=== PATIENT | female | born 1955 | race Caucasian/White ===

== ENCOUNTER → 2016-07-01 | Outpatient (CLI) | payer BC ==
[~2016-07-01] MED LIST: BSP/10 PO; CHOLCAP5 PO; CLC100 PO; CLR10 PO; CYAN100048 PO; ESTR1CRE PV; FERR1TAB23 PO; LEVO50TA6 PO; MULT-190 PO; MULT-506 PO; PANT1TAB48 PO; POTA1CAP2 PO
--- NOTE | 2016-07-01 16:56 | MAMMOGRAPHY REPORT ---
BILATERAL DIGITAL SCREENING MAMMOGRAM TOMOSYNTHESIS WITH CAD: 07/01/2016 CLINICAL HISTORY: Routine screening. Patient has no complaints. TECHNIQUE: Breast tomosynthesis in addition to standard 2D mammography was performed. Current study was also evaluated with a Computer Aided Detection (CAD) system. COMPARISON: Comparison is made to exams dated: 05/21/2015 mammogram, 05/10/2015 mammogram, 4 mammogram, 04/07/2013 mammogram, 04/06/2012 mammogram, and 03/23/2011 mammogram - [facility]. BREAST COMPOSITION: There are scattered areas of fibroglandular density in both breasts. FINDINGS: No suspicious masses, calcifications, or areas of architectural distortion are noted in e ither breast. There has been no significant interval change compared to prior exams. IMPRESSION: ACR BI-RADS CATEGORY 1: NEGATIVE There is no mammographic evidence of malignancy. A 1 year screening mammogram is recommended. The p atient will receive written notification of the results. Approximately 10% of breast cancers are not detected with mammography. A negative mammographic repor t should not delay biopsy if a clinically suggestive mass is present. Steff Nathan M.D. /:07/01/2016 15:29:44 Technology Specialist: Karla Palafox RT(Surendra)(Christiano)(BD), [facility] letter sent: Normal 1/2 BI-RADS Code: ACR BI-RADS Category 1: Negative
== END | disposition home or self-care (01) ==
LOC: C.MAMM 15:06
PROVIDERS: ATTEND Family Medicine
DX: Z12.31 Encounter for screening mammogram for malignant neoplasm of breast (principal)

== ENCOUNTER → 2016-12-10 | Outpatient (CLI) | payer BC | END | disposition home or self-care (01) | LOC: C.MAMM 08:25 | PROVIDERS: ATTEND Obstetrics & Gynecology | DX: M85.89 Other specified disorders of bone density and structure, multiple sites (principal) ==

== ENCOUNTER → 2017-07-06 | Outpatient (CLI) | payer BC ==
[~2017-07-06] MED LIST changes: +PANT1TAB3 PO; -PANT1TAB48 PO
--- NOTE | 2017-07-07 15:40 | MAMMOGRAPHY REPORT ---
BILATERAL DIGITAL SCREENING MAMMOGRAM TOMOSYNTHESIS WITH CAD: 07/06/2017 CLINICAL HISTORY: Routine screening. TECHNIQUE: Breast tomosynthesis in addition to standard 2D mammography was performed. Current study was also evaluated with a Computer Aided Detection (CAD) system. COMPARISON: Comparison is made to exams dated: 05/21/2015 mammogram, 07/01/2016 mammogram, 05/10/2015 mammogram, 04/10/2014 mammogram, 04/07/2013 mammogram, and 04/06/2012 mammogram - [facility]. BREAST COMPOSITION: There are scattered areas of fibroglandular density in both breasts. FINDINGS: There are stable asymmetries in the medial right breast, and scattered benign-appearing rou nd microcalcifications. No suspicious spiculated or irregular mass, developing asymmetry, architectu ral distortion or cluster of microcalcifications is seen. IMPRESSION: ACR BI-RADS CATEGORY 1: NEGATIVE There is no mammographic evidence of malignancy. A 1 year screening mammogram is recommended. The pa tient will receive written notification of the results. Approximately 10% of breast cancers are not detected with mammography. A negative mammographic report should not delay biopsy if a clinically suggestive mass is present. Kathryn Enriquez M.D. ay/:07/06/2017 19:10:10 Picture Enlarger: Lorenzo RUBIN)(M), [facility] letter sent: Normal 1/2 BI-RADS Code: ACR BI-RADS Category 1: Negative
== END | disposition home or self-care (01) ==
LOC: C.MAMM 14:49
PROVIDERS: ATTEND Obstetrics & Gynecology
DX: Z12.31 Encounter for screening mammogram for malignant neoplasm of breast (principal)

== ENCOUNTER 2019-08-22 02:13 | Inpatient (IN) ==
[2019-08-22] MEDS ORDERED: SODIUM CHLORIDE 0.9% 1000ML 1,000 ML IV ONE (02:41)
[2019-08-22] MEDS ORDERED: ONDANSETRON INJ 2 MG/ML 2 ML VIAL IV STA (02:41)
[2019-08-22] MEDS ORDERED: HYDROmorphone INJ 1 MG/ML SYRINGE IV STA (02:41)
[2019-08-22 03:12] LABS: Basophils # (auto) 0.03 K/uL (0-0.2); Basophils % (auto) 0.2 %; Eosinophils % (auto) 1.6 %; Hematocrit (blood only) 38.3 % (37-47); Hemoglobin 12.9 g/dL (12.0-16.0); Immature Granulocytes # (auto) 0.03 K/uL (0.00-0.02); Immature Granulocytes % (auto) 0.2 %; Lymphocytes # (auto) 2.25 K/uL (1.2-3.4); Lymphocytes % (auto) 18.2 %; Mean Corpuscular Hemoglobin 31.5 pg (25-34); Mean Corpuscular Hgb Conc 33.7 g/dL (32-36); Mean Corpuscular Volume 93.6 fL (80-100); Mean Platelet Volume 9.1 fL (7.4-10.4); Monocytes # (auto) 1.49 K/uL (0.11-0.59); Monocytes % (auto) 12.1 %; Neutrophils # (auto) 8.33 K/uL (1.4-6.5); Neutrophils % (auto) 67.7 %; Platelet Count 245 K/uL (130-400); RDW Coefficient of Variation 12.6 % (11.5-14.5); RDW Standard Deviation 42.9 fL (36.4-46.3); Red Blood Count 4.09 M/uL (4.2-5.4); White Blood Count 12.33 K/uL (4.8-10.8)
[2019-08-22 03:31] LABS: Albumin Level 3.8 gm/dl (3.4-5.0); BUN Creatinine Ratio 13.3 (10-20); Calcium 9.4 mg/dl (8.5-10.1); Creatinine Clr Calc Pharmacy 62.1 ml/min; Est GFR (Non-African American) 63.8
[2019-08-22 03:33] LABS: Bilirubin,Total 0.5 mg/dl (0.2-1); Globulin 3.7 gm/dl (2.5-4.0); Total Protein 7.5 gm/dl (6.4-8.2)
--- NOTE | 2019-08-22 04:09 | Emergency Department Note ---
History of Present Illness General Chief complaint: GI Assessment Stated complaint: BOWEL BLOCKAGE Time Seen by Provider: 08/22/19 02:31 Source: patient Mode of arrival: ambulatory Limitations: no limitations History of Present Illness Maximum Pain Intensity: 7 This patient is a 63-year-old female who presents to the emergency department accompanied by her for evaluation of a bowel obstruction. Patient st ates that she has had upper abdominal pain and nausea/vomiting which started approximately 12 hours ago. 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 She has had a hysterectomy, appendectomy, bowel resection, gallbladder removal, among other abdominal surgeries. She states her symptoms now feel similar to her prior bowel obstructions. She reports that her bowel obstructions have always resolved without surgery and most have resolved without need for an NG tube. She rates her discomfort an 8/10. She states the pain is sharp and crampy. Last bowel movement was yesterday. She denies any fevers or urinary symptoms. Home Medications Home Medications Medication Instructions Recorded Confirmed Type pantoprazole [Protonix] 40 mg PO QPM 03/04/18 08/22/19 History potassium chloride 10 meq PO QAM 03/04/18 08/22/19 History thyroid (pork) [[place] Thyroid] 90 mg PO DAILY 03/04/18 08/22/19 History calcium carbonate [Calcium 600] 1,200 mg PO DAILY 08/22/19 08/22/19 History cholecalciferol (vitamin D3) 125 mcg PO DAILY 08/22/19 08/22/19 History [Vitamin D3] cyanocobalamin (vitamin B-12) 1,000 mcg SUBLINGUAL 3XWK 08/22/19 08/22/19 History docusate sodium 700 mg PO HS 08/22/19 08/22/19 History ferrous sulfate 325 mg PO 4XWK 08/22/19 08/22/19 History multivitamin with minerals 1 tab PO DAILY 08/22/19 08/22/19 History [Multiple Vitamin-Minerals] vitamin E 400 unit PO DAILY 08/22/19 08/22/19 History Allergies Allergy/AdvReac Type Severity Reaction Status Date / Time barium sulfate Allergy Severe "SEVERELY Verified 08/22/19 04:45 ILL", GI promethazine Allergy Mild INTOLERANCE, Verified 08/22/19 04:45 DIZZY meperidine Allergy Unknown BRUISING Verified 08/22/19 04:45 AND SEVERE BURNING IN IV FORM morphine AdvReac Intermediate Anxiety Verified 08/22/19 04:45 adhesive AdvReac Unknown RASH Verified 08/22/19 04:45 Past Med/Surg History Medical History Adenocarcinoma of appendix Hypothyroidism Surgical History H/O ovarian cystectomy History of appendectomy History of cholecystectomy History of hysterectomy History of resection of small bowel S/P hip replacement S/P tonsillectomy Social History Preferred Language: Scottish Communication Ability: Effective Solution Designer Required: No Beliefs That Will Affect Care: None marital status: Current Living Situation: Spouse Feels Safe at Home: Yes Smoking Status: Never smoker Second Hand Exposure: No ; Hx Alcohol Use: Yes Alcohol type: beer and wine Hx Substance Use: No Review of Systems A total of 10 systems reviewed and were otherwise negative Physical Exam Vital Signs Vital Signs - 24 hr 08/22/19 02:25 08/22/19 03:08 08/22/19 03:16 Temperature 36.4 C L Temperature Source Oral Pulse Rate 67 63 Pulse Rate from SpO2 Sensor 63 Pulse Rhythm Regular Pulse Strength Normal Respiratory Rate 20 27 H Respiratory Effort / Characteristics Non-Labored Spontaneous Respiratory Depth Normal Respiratory Pattern Regular Blood Pressure 120/75 110/66 Blood Pressure Mean 90 73 Pulse Oximetry 100 100 78 L Oxygen Delivery Method Room Air Room Air Nasal Cannula Oxygen Flow Rate Sepsis Recent Fever Within 48 Hours No Sepsis Action Taken by Nursing No Action Required Oxygen Flow Rate - Titration 2 Pulse Oximetry Post Tiitration 99 08/22/19 03:30 08/22/19 04:00 08/22/19 04:30 Temperature Temperature Source Pulse Rate 65 73 73 Pulse Rate from SpO2 Sensor 64 72 73 Pulse Rhythm Pulse Strength Respiratory Rate 16 15 14 Respiratory Effort / Characteristics Respiratory Depth Respiratory Pattern Blood Pressure 117/74 111/67 131/72 Blood Pressure Mean 89 73 78 Pulse Oximetry 98 99 99 Oxygen Delivery Method Nasal Cannula Nasal Cannula Room Air Oxygen Flow Rate 2 2 Sepsis Recent Fever Within 48 Hours Sepsis Action Taken by Nursing Oxygen Flow Rate - Titration Pulse Oximetry Post Tiitration VITALS: Vitals are noted on the nurse's note and reviewed by myself. Vital signs stable. GENERAL: This is a 63-year-old female, in moderate distress, uncomfortable appearing, well-developed well-nourished. SKIN: The skin was without rashes. EYES: Pupils equal round and reactive to light and accommodation. MOUTH: Mucous membranes moist. Tonsils are not enlarged. Pharynx without erythema or exudate. NECK: Supple without nuchal rigidity. No lymphadenopathy. HEART: Regular rate and rhythm without murmurs gallops or rubs. LUNGS: Clear to auscultation bilaterally without wheezes, rales or rhonchi. ABDOMEN: Hypoactive bowel sounds. Abdomen is soft and nondistended. There is moderate tenderness to the patient across the upper abdomen. No guarding or rebound tenderness. EXTREMITIES: No pitting edema of the lower extremities. NEURO: Patient was alert and oriented to person place and time. Course Reevaluation(s) Reevaluation #1: Patient was reevaluated. She feels much better after receiving the pain and nausea medication. Findings were discussed with the patient. She is agreeable to admission. Patient refuses NG tube at this time. Consultations Consultation #1: Dr. Benjamin Franks [facility] hospitalist Administered Medications Ioversol (Optiray 320 100ml) 100 ml IV ONCE PRN PRN Reason: Interaction Checking Stop: 08/26/19 04:17 Last Admin: 08/22/19 04:18 Dose: 93 ml Documented by: [id number] Discontinued Medications Hydromorphone HCl (Dilaudid) 1 mg IV NOW STA Stop: 08/22/19 02:42 Last Admin: 08/22/19 03:01 Dose: 1 mg Documented by: [id number] Sodium Chloride (Nss 1000ml) 1,000 mls @ 999 mls/hr IV .Q1H1M ONE Stop: 08/22/19 03:41 Last Infusion: 08/22/19 04:05 Dose: 0 mls/hr Documented by: [id number] Admin: 08/22/19 03:00 Dose: 999 mls/hr Documented by: [id number] Ondansetron HCl (Zofran) 4 mg IV NOW STA Stop: 08/22/19 02:42 Last Admin: 08/22/19 03:01 Dose: 4 mg Documented by: [id number] Medical Decision Making Differential Diagnosis Differential diagnosis includes appendicitis, diverticulitis, bowel obstruction, inflammatory bowel disease, renal colic, PUD, biliary pathology, pancreatitis, mesenteric ischemia, aortic pathology, infection, genitourinary, UTI, perforated viscus, among others. Home Medications Current Medication List: was personally reviewed by me Laboratory Data Attestation: I reviewed the patient's lab results. Result diagrams: 08/22/19 02:56 08/22/19 02:59 Lab Results 08/22/19 08/22/19 Range/Units 02:56 02:59 WBC 12.33 H (4.8-10.8) K/uL RBC 4.09 L (4.2-5.4) M/uL Hgb 12.9 (12.0-16.0) g/dL Hct 38.3 (37-47) % MCV 93.6 (80-100) fL MCH 31.5 (25-34) pg MCHC 33.7 (32-36) g/dL RDW Std Deviation 42.9 (36.4-46.3) fL RDW Coeff of Rodrigo 12.6 (11.5-14.5) % Plt Count 245 (130-400) K/uL MPV 9.1 (7.4-10.4) fL Immature Gran % (Auto) 0.2 % Neut % (Auto) 67.7 % Lymph % (Auto) 18.2 % Terry % (Auto) 12.1 % Eos % (Auto) 1.6 % Baso % (Auto) 0.2 % Immature Gran # (Auto) 0.03 H (0.00-0.02) K/uL Neut # (Auto) 8.33 H (1.4-6.5) K/uL Lymph # (Auto) 2.25 (1.2-3.4) K/uL Terry # (Auto) 1.49 H (0.11-0.59) K/uL Eos # (Auto) 0.20 (0-0.5) K/uL Baso # (Auto) 0.03 (0-0.2) K/uL Sodium 138 (136-145) mmol/L Potassium 4.0 (3.5-5.1) mmol/L Chloride 103 (98-107) mmol/L Carbon Dioxide 25 (21-32) mmol/L Anion Gap 9.0 (3-11) BUN 13 (7-18) mg/dl Creatinine 0.96 (0.6-1.2) mg/dl Est Cr Clr Drug Dosing 62.1 ml/min Est GFR ( Amer) 74.0 Est GFR (Non-Af Amer) 63.8 BUN/Creatinine Ratio 13.3 (10-20) Glucose 101 H (70-99) mg/dl Calcium 9.4 (8.5-10.1) mg/dl Total Bilirubin 0.5 (0.2-1) mg/dl AST 20 (15-37) U/L ALT 31 (12-78) U/L Alkaline Phosphatase 92 (45-117) U/L Total Protein 7.5 (6.4-8.2) gm/dl Albumin 3.8 (3.4-5.0) gm/dl Globulin 3.7 (2.5-4.0) gm/dl Albumin/Globulin Ratio 1.0 (0.9-2) Lipase 143 (73-393) U/L Imaging Data Attestation: I personally reviewed and interpreted this imaging study as follows: Radiologist's Impression: CT ABDOMEN & PELVIS With Contrast: Priors from 03/04/18, 07/23/15. Bowel anastomotic suture sites in the pelvis as on priors. Multiple dilated small bowel loops with air-fluid levels likely represents small bowel obstruction with transition point in the pelvis. Similar configuration on priors. No free air, free fluid. Cholecystectomy and central biliary ectasia, stable. Left hip prosthesis. Absent uterus Radiologist: Dorian Ramos M.D. Blood Pressure Blood Pressure Findings: Elevated blood pressure Blood Pressure Disposition: further management by hospitalist MDM Narrative The patient is a 63-year-old female who presents today complaining of abdominal pain and vomiting consistent with prior bowel obstructions. Labs revealed a mild leukocytosis, no anemia or concerning electrolyte abnormalities. CT abdomen pelvis was performed and shows small bowel obstruction. Patient treated with IV fluids, Dilaudid and Zofran with improvement of her symptoms. Patient refused NG tube at this time and as there is no significant gastric distention I feel this is reasonable. The case was discussed with the [facility] hospitalist, Dr. Alexander, who agreed to evaluate patient for further care. Impression & Plan Small bowel obstruction Discharge Plan Visit Data *Final* Discharge Date/Time: 08/22/19 05:19 Chief Complaint: GI Assessment Stated Complaint: BOWEL BLOCKAGE ED Provider: Toney Mckeon ED Midlevel Provider: Ana Glaser Discharge Problem: Small bowel obstruction Patient Disposition: Admitted As Inpatient Discharge Instructions Interventions: ED Discharge Assessment Last Done: 08/22/19 05:19
[2019-08-22] MEDS ORDERED: IOVERSOL 100ml IV PRN (04:18)
--- NOTE | 2019-08-22 05:03 | History & Physical Report ---
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 Patient presently pain-free, no nausea, nontoxic in appearance Admit to medical floor N.p.o. Check magnesium and phosphorus and optimize as needed LR at 100 mL/h x 2 L Zofran as needed for nausea Dilaudid as needed for pain Surgery consultation if symptoms persist or worsen Present on Admission?: Yes (2) Hypothyroidism: Chronic. Check TSH Continue [place] Thyroid 90 mg p.o. daily FENLR at 100 mL/h x 2 L, monitor electrolytes replete as needed, n.p.o. for now ProphylaxisLovenox Codefull Dispositionadmission to medical floor Present on Admission?: Yes History of Present Illness Chief Complaint: abdominal pain Primary Care Provider: Toney Villasenor Sharron Romero is a 63yo C female with history of appendiceal cancer s/p resection and chemo, frequent SBOs presenting with abdominal pain. Patient's pain began acutely yesterday at 1400, lower abdominal discomfort, fairly severe. Pain initially improved then got worse and persisted through the night. She did not eat dinner and was drinking Gatorade, took an oxycodone at home for the pain around 2130 with minimal relief. Also with mild nausea, no vomiting. Last b owel movement was yesterday afternoon. Presently not passing gas, no nausea, no pain. Patient has had multiple SBO's in the past and states that this feels similar. ER course: Dilaudid 1 mg, Zofran 4 mg, normal saline solution Allergies Allergy/AdvReac Type Severity Reaction Status Date / Time barium sulfate Allergy Severe "SEVERELY Verified 08/22/19 04:45 ILL", GI promethazine Allergy Mild INTOLERANCE, Verified 08/22/19 04:45 DIZZY meperidine Allergy Unknown BRUISING Verified 08/22/19 04:45 AND SEVERE BURNING IN IV FORM morphine AdvReac Intermediate Anxiety Verified 08/22/19 04:45 adhesive AdvReac Unknown RASH Verified 08/22/19 04:45 Home Medications Home Medications Medication Instructions Recorded Confirmed Type pantoprazole [Protonix] 40 mg PO QPM 03/04/18 08/22/19 History potassium chloride 10 meq PO QAM 03/04/18 08/22/19 History thyroid (pork) [[place] Thyroid] 90 mg PO DAILY 03/04/18 08/22/19 History calcium carbonate [Calcium 600] 1,200 mg PO DAILY 08/22/19 08/22/19 History cholecalciferol (vitamin D3) 125 mcg PO DAILY 08/22/19 08/22/19 History [Vitamin D3] cyanocobalamin (vitamin B-12) 1,000 mcg SUBLINGUAL 3XWK 08/22/19 08/22/19 History docusate sodium 700 mg PO HS 08/22/19 08/22/19 History ferrous sulfate 325 mg PO 4XWK 08/22/19 08/22/19 History multivitamin with minerals 1 tab PO DAILY 08/22/19 08/22/19 History [Multiple Vitamin-Minerals] vitamin E 400 unit PO DAILY 08/22/19 08/22/19 History Past Med/Surg History Medical History (Updated 08/22/19 @ 05:02 by Yuliya Alexander DO) Adenocarcinoma of appendix Hypothyroidism Surgical History (Updated 08/22/19 @ 04:37 by Ana Glaser PA-C) H/O ovarian cystectomy History of appendectomy History of cholecystectomy History of hysterectomy History of resection of small bowel S/P hip replacement S/P tonsillectomy Family History (Updated 08/22/19 @ 04:56 by Yuliya Alexander DO) Other Osteoporosis Social History Preferred Language: Ghanaian Communication Ability: Effective Beliefs That Will Affect Care: None marital status: Current Living Situation: Spouse Feels Safe at Home: Yes Smoking Status: Never smoker Second Hand Exposure: No ; Hx Alcohol Use: Yes (4-5 glass a week) Alcohol type: beer and wine Hx Substance Use: No Review of Systems Review of Systems: All systems reviewed & are unremarkable except as noted in HPI & below Denies fever/chills/chest pain/palpitations/cough/shortness of breath. Denies nausea/vomiting/diarrhea/constipation Physical Exam Physical Exam: General: patient resting comfortably, NAD, non-toxic in appearance, AA&O x 4 Skin: warm, dry, intact, no rashes or lesions HEENT: NC/AT, PERRL, EOMI, anicteric sclera, conjunctiva without injection, external ear normal to inspection and nontender, nares patent, moist mucus membranes, dentition intact, no oropharyngeal lesions, neck supple, trachea midline, no LAD, no thyromegaly, no JVD Heart: +S1/S2, regular, no m/r/g Lungs: equal air entry bilaterally, no rales/rhonchi/wheezes Abd: +BS, diminished, soft, ND, mildly tender with deep palpation, no rebound/guarding/peritoneal signs no masses/organomegaly/ascites Ext: warm, 2+ pulses in UE/LE bilaterally, no clubbing/cyanosis or edema Neuro: nonfocal, patient AA&O x 4, speech intact, no facial droop, moving all extremities on command with equal strength 5/5 Results & Data Vital Signs (Past 12 Hours) Vital Signs Temp Pulse Resp BP Pulse Ox 08/22/19 04:00 73 15 111/67 99 08/22/19 03:30 65 16 117/74 98 08/22/19 03:16 78 L 08/22/19 03:08 63 27 H 110/66 100 08/22/19 02:25 36.4 C L 67 20 120/75 100 Laboratory Results Lab Results 08/22/19 08/22/19 Range/Units 02:56 02:59 WBC 12.33 H (4.8-10.8) K/uL RBC 4.09 L (4.2-5.4) M/uL Hgb 12.9 (12.0-16.0) g/dL Hct 38.3 (37-47) % MCV 93.6 (80-100) fL MCH 31.5 (25-34) pg MCHC 33.7 (32-36) g/dL RDW Std Deviation 42.9 (36.4-46.3) fL RDW Coeff of Rodrigo 12.6 (11.5-14.5) % Plt Count 245 (130-400) K/uL MPV 9.1 (7.4-10.4) fL Immature Gran % (Auto) 0.2 % Neut % (Auto) 67.7 % Lymph % (Auto) 18.2 % Sebastian % (Auto) 12.1 % Eos % (Auto) 1.6 % Baso % (Auto) 0.2 % Immature Gran # (Auto) 0.03 H (0.00-0.02) K/uL Neut # (Auto) 8.33 H (1.4-6.5) K/uL Lymph # (Auto) 2.25 (1.2-3.4) K/uL Sebastian # (Auto) 1.49 H (0.11-0.59) K/uL Eos # (Auto) 0.20 (0-0.5) K/uL Baso # (Auto) 0.03 (0-0.2) K/uL Sodium 138 (136-145) mmol/L Potassium 4.0 (3.5-5.1) mmol/L Chloride 103 (98-107) mmol/L Carbon Dioxide 25 (21-32) mmol/L Anion Gap 9.0 (3-11) BUN 13 (7-18) mg/dl Creatinine 0.96 (0.6-1.2) mg/dl Est Cr Clr Drug Dosing 62.1 ml/min Est GFR ( Amer) 74.0 Est GFR (Non-Af Amer) 63.8 BUN/Creatinine Ratio 13.3 (10-20) Glucose 101 H (70-99) mg/dl Calcium 9.4 (8.5-10.1) mg/dl Total Bilirubin 0.5 (0.2-1) mg/dl AST 20 (15-37) U/L ALT 31 (12-78) U/L Alkaline Phosphatase 92 (45-117) U/L Total Protein 7.5 (6.4-8.2) gm/dl Albumin 3.8 (3.4-5.0) gm/dl Globulin 3.7 (2.5-4.0) gm/dl Albumin/Globulin Ratio 1.0 (0.9-2) Lipase 143 (73-393) U/L Diagnostic Findings CT abdomen pelvis with IV contrastawaiting formal read. Appears to have distended loops of bowel with air-fluid levels suggestive of bowel obstruction ECG Additional Comments: EKG with normal sinus rhythm at 65 bpm, normal axis, [place] = 188, QRS = 70, QTc = 447, no acute ischemic changes Code Status & VTE Plan Code Status Full code VTE Prophylaxis Plan VTE Prophylaxis will be ordered: Yes PG Care Time/CCT Total # of Minutes Spent Total Time Spent with Patient: Total time spent is greater than 50% in coordination of care (as documented) at patient's floor/unit and/or counseling patient: Coding Level of Care Code 00988 Initial Inpt Care Lvl 2 Diagnoses Small bowel obstruction K56.609 Hypothyroidism E03.9 Hypothyroidism type: unspecified (1) Hypothyroidism Hypothyroidism type: unspecified Qualified Code(s): E03.9 - Hypothyroidism, unspecified
[2019-08-22] MEDS ORDERED: ONDANSETRON INJ 2 MG/ML 2 ML VIAL IV PRN (05:33)
[2019-08-22] MEDS ORDERED: HYDROmorphone INJ 1 MG/ML SYRINGE IV PRN (05:33)
[2019-08-22] MEDS: LACTATED RINGER'S 1,000 ML IV SCH ×2 (06:13→16:02)
[2019-08-22 06:16] LABS: Magnesium 2.3 mg/dl (1.8-2.4); Phosphorus 3.3 mg/dl (2.5-4.9)
--- NOTE | 2019-08-22 06:25 | CT Scan Report ---
CT abd pelvis IV con only CT DOSE: 409.93 mGy.cm HISTORY: Pain. Bowel obstruction. abdominal pain, hx bowel obstruction TECHNIQUE: Multiaxial CT images of the abdomen and pelvis were performed following the use of intrave nous contrast. A dose lowering technique was utilized adhering to the principles of ALARA. COMPARISON STUDY: 03/04/2018 FINDINGS: Similar configuration to prior studies. Lung bases are clear. Prior cholecystectomy. Liver spleen and pancreas are unremarkable. Kidneys enhance uniformly. Distended small bowel loops persist. A surgical anastomotic line within the superior central pelvic r egion is again noted with additional anastomotic lines within the low pelvis. The appearance continues to suggest nonspecific small bowel obstructive change. No evidence for signi ficant free fluid within the pelvis within limitations artifact from a total left hip prosthetic. IMPRESSION: Findings again consistent with small bowel obstructive change unaltered in overall appear ance compared to prior studies. Postoperative changes as noted previously as well as above are unalte red. IMPRESSION: No significant abnormality identified within the abdomen or pelvis. ACT 112: Negative or not required by law. The above report was generated using voice recognition software. It may contain grammatical, syntax or spelling errors. Electronically signed by: Juan Edouard M.D. 08/22/2019 6:23 AM
[2019-08-22 07:27] LABS: Appearance Urine Clear (Clear); Bilirubin Urine Negative (Negative); Blood Urine Negative (Negative); Color Urine Colorless; Glucose Urine UA Negative (Negative); Ketones Urine Negative (Negative); Leukocyte Esterase Urine Negative (Negative); Nitrite Urine Negative (Negative); Protein Urine Negative (Negative); Urobilinogen Urine Negative (Negative)
[2019-08-22] MEDS: ARMOUR THYROID 30 MG TAB PO SCH (07:50)
[2019-08-22] MEDS: ENOXAPARIN INJ 40 MG/0.4 ML SYR SQ SCH (07:53)
[2019-08-22] MEDS: POTASSIUM CHLORIDE 10 MEQ TABCR PO SCH (07:53)
[2019-08-22] MEDS ORDERED: IBUPROFEN 200 MG TAB PO PRN (10:02)
--- NOTE | 2019-08-22 13:31 | Hospitalist Progress Note ---
Date of Service August 22, 2019 Assessment & Plan (1) Small bowel obstruction: - H/O appendiceal CA S/P resection/chemotherapy - H/O multiple SBOs - NPO except for sips/chips; pending more passing of flatus/BMs can advance slowly with clear liquid diet and adjust per tolerance - Continue LR at 100 mL/hr; Pain and nausea control - Will hold on surgical consultation at this time as starting to pass flatus - if worsening symptoms or persistence of symptoms will consult (2) Hypothyroidism: - Chronic - TSH 9 but free T4 is WNL - possibly TSH could be reactive in setting of SBO - Continue [place] Thyroid 90 mg daily Disposition From home; await clinical improvement Admission and Anticipated Discharge Date Admission Date: August 22, 2019 Supervising Physician Co-Signing Physician Notes Attending Attestation - Chart reviewed, care plan d/w OSITO Ya. I agree w/ the crews components of her documentation. SBO likely on the basis of adhesions. Starting to pass flatus. Cont conservative measures. Low threshold for gen surg consultation w/ any worsening or failure to improve. Would increase armour thyroid dose based on current TFTs. Nathanael Rubio MD Subjective Reports feeling a bit better today. Starting to pass flatus this morning. No appetite. No abdominal pain currently. Does complain of a headache. Verbalizes no new complaints at this time. Review of Systems Constitutional: no fever and no chills Respiratory: no cough and no dyspnea Cardiovascular: no chest pain and no lightheadedness Gastrointestinal: + bloating; no abdominal pain, no nausea, no vomiting, no constipation and no diarrhea/loose stools Genitourinary: no dysuria Integumentary: no rash Neurologic: + headache(s) Physical Exam Constitutional: WD/WN, vitals as above Eyes: + anicteric sclerae Neck: trachea midline Respiratory: normal respiratory effort, lungs clear to auscultation Cardiovascular: RRR, no murmur, no edema Gastrointestinal (Abdomen): Inspection/Auscultation: + abnormal bowel sounds (hypoactive but pretty normoactive in LUQ) Musculoskeletal: Head/Neck/Chest: normocephalic and head atraumatic Skin: no rashes, warm and dry Neurologic: moves all extremities Psychiatric: A+Ox3, euthymic affect Results & Data (MN) Vital Signs (Past 12 Hours) Vital Signs Temp Pulse Pulse Resp BP BP Pulse Ox 08/22/19 07:07 36.7 C 70 16 105/69 100 08/22/19 05:34 36.8 C 86 18 133/81 99 08/22/19 05:00 74 23 125/80 100 08/22/19 04:30 73 14 131/72 99 08/22/19 04:00 73 15 111/67 99 08/22/19 03:30 65 16 117/74 98 08/22/19 03:16 78 L 08/22/19 03:08 63 27 H 110/66 100 08/22/19 02:25 36.4 C L 67 20 120/75 100 PG Care Time/CCT Total # of Minutes Spent Total Time Spent with Patient: Total time spent is greater than 50% in coordination of care (as documented) at patient's floor/unit and/or counseling patient: Coding Level of Care Code 16920 Subseq Hosp Care Lvl 2 Diagnoses Small bowel obstruction K56.609 Hypothyroidism E03.9 Hypothyroidism type: unspecified (1) Hypothyroidism Hypothyroidism type: unspecified Qualified Code(s): E03.9 - Hypothyroidism, unspecified
--- NOTE | 2019-08-22 14:59 | Electrocardiogram Report ---
Test Reason : Blood Pressure : / mmHG Vent. Rate : 065 BPM Atrial Rate : 065 BPM P-R Int : 188 ms QRS Dur : 070 ms QT Int : 430 ms P-R-T Axes : 041 052 056 degrees QTc Int : 447 ms Normal sinus rhythm Normal ECG When compared with ECG of 23-JUL-2015 02:09, No significant change was found Confirmed by Popeye Guzman ([id number]) on 08/22/2019 2:59:21 PM Referred By: REFERRED SELF Confirmed By:Popeye Guzman
[2019-08-22] MEDS ORDERED: PANTOprazole 40 MG TAB PO SCH (21:00)
[2019-08-23] MEDS: ENOXAPARIN INJ 40 MG/0.4 ML SYR SQ SCH (08:10)
[2019-08-23] MEDS: POTASSIUM CHLORIDE 10 MEQ TABCR PO SCH (08:10)
[2019-08-23] MEDS: ARMOUR THYROID 30 MG TAB PO SCH (08:10)
[2019-08-23 09:06] LABS: Hematocrit (blood only) 37.3 % (37-47); Hemoglobin 12.3 g/dL (12.0-16.0); Mean Corpuscular Hemoglobin 31.6 pg (25-34); Mean Corpuscular Volume 95.9 fL (80-100); Platelet Count 244 K/uL (130-400); RDW Coefficient of Variation 12.9 % (11.5-14.5); RDW Standard Deviation 44.7 fL (36.4-46.3); Red Blood Count 3.89 M/uL (4.2-5.4); White Blood Count 5.85 K/uL (4.8-10.8)
[2019-08-23 09:44] LABS: BUN Creatinine Ratio 7.4 (10-20); Calcium 8.8 mg/dl (8.5-10.1); Creatinine Clr Calc Pharmacy 69.3 ml/min; Est GFR (African American) 84.5; Est GFR (Non-African American) 72.9; Potassium 3.8 mmol/L (3.5-5.1)
--- NOTE | 2019-08-23 14:48 | Discharge Summary ---
Date of Service August 23, 2019 Admission HPI Per Admitting Provider Sharron Romero is a 63yo C female with history of appendiceal cancer s/p resection and chemo, frequent SBOs presenting with abdominal pain. Patient's pain began acutely yesterday at 1400, lower abdominal discomfort, fairly severe. Pain initially improved then got worse and persisted through the night. She did not eat dinner and was drinking Gatorade, took an oxycodone at home for the pain around 2130 with minimal relief. Also with mild nausea, no vomiting. Last bowel movement was yesterday afternoon. Presently not passing gas, no nausea, no pain. Patient has had multiple SBO's in the past and states that this feels similar. ER course: Dilaudid 1 mg, Zofran 4 mg, normal saline solution Admission Exam Per Admitting Provider General: patient resting comfortably, NAD, non-toxic in appearance, AA&O x 4 Skin: warm, dry, intact, no rashes or lesions HEENT: NC/AT, PERRL, EOMI, anicteric sclera, conjunctiva without injection, external ear normal to inspection and nontender, nares patent, moist mucus membranes, dentition intact, no oropharyngeal lesions, neck supple, trachea midline, no LAD, no thyromegaly, no JVD Heart: +S1/S2, regular, no m/r/g Lungs: equal air entry bilaterally, no rales/rhonchi/wheezes Abd: +BS, diminished, soft, ND, mildly tender with deep palpation, no rebound/guarding/peritoneal signs no masses/organomegaly/ascites Ext: warm, 2+ pulses in UE/LE bilaterally, no clubbing/cyanosis or edema Neuro: nonfocal, patient AA&O x 4, speech intact, no facial droop, moving all extremities on command with equal strength 5/5 Principal Diagnosis Small Bowel Obstruction Discharge Exam General: Resting comfortably HEENT: NC/AT; PERRLA with EOMI; [place] conjunctiva, MMM. No erythema of posterior pharynx Neck: Supple and nontender Cardiac: RRR Lungs: CTA bilaterally Abdomen: Bowel normoactive X 4; Nontender to palpation Extremities: Warm. No edema present Neuro: No focal weakness Skin: No rash Discharge Data Allergies Allergy/AdvReac Type Severity Reaction Status Date / Time barium sulfate Allergy Severe "SEVERELY Verified 08/22/19 04:45 ILL", GI promethazine Allergy Mild INTOLERANCE, Verified 08/22/19 04:45 DIZZY meperidine Allergy Unknown BRUISING Verified 08/22/19 04:45 AND SEVERE BURNING IN IV FORM morphine AdvReac Intermediate Anxiety Verified 08/22/19 04:45 adhesive AdvReac Unknown RASH Verified 08/22/19 04:45 Consultations 08/22/19 04:39 ED Decision to Admit Stat Ordered Studies 08/22/19 02:41 CT abd pelvis IV con only Urgent Hospital Course (1) Small bowel obstruction: H/o appendiceal CA S/P resection/chemotherapy - H/o multiple SBOs Passing flatus, tolerating CLD as of 08/21. Advanced to FLD on 08/22. Continue low residue diet x 1 week. LR at 100 mL/hr. Had multiple BMs prior to discharge. Did not require surgical consult. (2) Hypothyroidism: TSH 9 but free T4 is WNL - possibly TSH could be reactive in setting of SBO. Continued [place] Thyroid 90 mg daily Discuss with PCP. Discharged to home on 08/23/19. Total Time Total Time Spent Total Time Spent (In Minutes): >30 minutes Total Time Includes: Examination of the Patient, Discharge Planning, Medication Reconciliation, Communication With Other Providers and Other Discharge Plan Discharge Items Patient Disposition: Home - Self-Care Reason For Visit: SBO Discharge Diagnosis: Small Bowel Obstruction Condition on Discharge: Fair Goals: You have been hospitalized for an acute medical problem. During your stay at [facility], we have made an effort to correct the problem that brought you to the hospital while keeping you as comfortable as possible. Medications were used to bring your condition under control and your discharge instructions will include directions for any medications you should take after leaving the hospital. Please make sure you see your Primary Care Provider as part of your follow up plan. Activity: As commented below Exercise/Sports: Gradually increase as tolerated Non-emergency contact: Primary Care Provider Call non-emergency contact if: you have any medication questions, your symptoms worsen and you have a fever Follow-up/Referrals: Toney Villasenor [Primary Care Provider] - 09/11/19 1:00 pm Diet: Low Fiber Diet Comment: Low fiber diet for 1 week. Addtl Attending Provider Instructions: 1. Small Bowel Obstruction * SBO is now resolved. * Please continue to drink fluids at home to avoid dehydration. * Continue bowel regimen if needed for constipation -- stool softener twice daily with Miralax as needed. * Please follow up with PCP in 7-10 days. 2. Hypothyroidism * TSH level is elevated at 9. * Please follow up with PCP to discuss increasing thyroid replacement medication. Pending Studies at Discharge: No Stand-Alone Forms: [facility] Medications and DC Order Prescriptions: New docusate sodium [Colace] 100 mg capsule 100 mg PO BID Qty: 1 RF: 0 polyethylene glycol 3350 [Miralax] 17 gram powder in packet 17 gm PO DAILY PRN (Reason: constipation) Qty: 1 RF: 0 Continued pantoprazole [Protonix] 40 mg Tablet,Delayed Release (Dr/Ec) 40 mg PO QPM RF: 0 potassium chloride 10 mEq Tablet Extended Release 10 meq PO QAM RF: 0 thyroid (pork) [[place] Thyroid] 90 mg Tablet 90 mg PO DAILY RF: 0 ferrous sulfate 325 mg (65 mg iron) Tablet 325 mg PO 4XWK RF: 0 multivitamin with minerals [Multiple Vitamin-Minerals] Tablet 1 tab PO DAILY RF: 0 cholecalciferol (vitamin D3) [Vitamin D3] 125 mcg (5,000 unit) Tablet 125 mcg PO DAILY RF: 0 cyanocobalamin (vitamin B-12) 1,000 mcg Tablet, Sublingual 1,000 mcg SUBLINGUAL 3XWK RF: 0 vitamin E 400 unit Capsule 400 unit PO DAILY RF: 0 calcium carbonate [Calcium 600] 600 mg calcium (1,500 mg) Tablet 1,200 mg PO DAILY RF: 0 Discontinued docusate sodium 100 mg Capsule 700 mg PO HS RF: 0 Discharge Orders: Discharge Order (Routine); Ordered 08/23/19 Ordered By: Roxi Noel/Other Patient Handouts: Obstruction Sm Bowel Admission Data Admit Date/Time: 08/22/19 04:42 Attending Provider: Nathanael Rubio Admit Provider: Yuliya Alexander Primary Care Provider: Toney Villasenor Other Providers: Yuliya Alexander Other Interventions: Discharge Summary Assessment (RN) Last Done: 08/23/19 17:36 DC Date/Time DO NOT enter until pt leaves facility: 08/23/19 18:10 Supervising Physician Co-Signing Physician Notes Attending Attestation - Chart reviewed, discharge care plan d/w OSITO Ya. I agree w/ the crews components of her discharge documentation. 63yo female with h/o appendiceal cancer. Presented with SBO likely on the basis of adhesions. SBO resolved with conservative measures. Was passing plenty of flatus and stool prior to discharge. Vitals/labs remained stable while here. On day of discharge the patient was discharged prior to me performing a physical exam. Nathanael Rubio MD Coding Level of Care Code D/C Day Management >30 mins Diagnoses Small bowel obstruction K56.609 Hypothyroidism E03.9 Hypothyroidism type: unspecified
== END 2019-08-23 18:10 | disposition home or self-care (01) | DRG 390 ==
LOC: ED 02:13 → SUATTDRO 04:42 → 3W 04:42

== ENCOUNTER 2020-04-29 22:49 | Inpatient (IN) ==
--- NOTE | 2020-04-29 22:59 | Emergency Department Note ---
History of Present Illness General Chief complaint: Abdominal Pain Stated complaint: ABD PAIN Time Seen by Provider: 04/29/20 22:58 History of Present Illness Maximum Pain Intensity: 5 This is a 64-year-old female that presents to the emergency department via private vehicle with complaints of "abdominal pain". Patient notes a history of bowel obstructions and this feels similar. She notes a history of multiple abdominal surgeries with now subsequent adhesions. The patient notes that her last bowel obstruction was this past August. She notes associated nausea but no vomiting. No fevers, chills, chest pain or shortness of breath. Home Medications Medication Instructions Recorded Confirmed Type pantoprazole [Protonix] 40 mg PO QPM 03/04/18 04/30/20 History potassium chloride 10 meq PO QAM 03/04/18 04/30/20 History thyroid (pork) [[place] Thyroid] 90 mg PO DAILY 03/04/18 04/30/20 History calcium carbonate [Calcium 600] 1,200 mg PO DAILY 08/22/19 04/30/20 History cholecalciferol (vitamin D3) 125 mcg PO DAILY 08/22/19 04/30/20 History [Vitamin D3] cyanocobalamin (vitamin B-12) 1,000 mcg SUBLINGUAL 3XWK 08/22/19 04/30/20 History ferrous sulfate 325 mg PO 4XWK 08/22/19 04/30/20 History multivitamin with minerals 1 tab PO DAILY 08/22/19 04/30/20 History [Multiple Vitamin-Minerals] vitamin E 400 unit PO DAILY 08/22/19 04/30/20 History docusate sodium [Colace] 100 mg PO BID #1 cap 08/23/19 04/30/20 Rx bisacodyl 5 mg tablet,delayed 5 mg PO UD 09/21/19 04/30/20 History release lutein 6 mg tablet 6 mg PO UD 09/21/19 04/30/20 History conjugated estrogens 0.625 mg/gram 0.625 mg PV 2XWK #30 gm 02/29/20 04/30/20 Rx vaginal cream Allergies Allergy/AdvReac Type Severity Reaction Status Date / Time barium sulfate Allergy Severe "SEVERELY Verified 04/30/20 01:21 ILL", GI promethazine Allergy Mild INTOLERANCE, Verified 04/30/20 01:21 DIZZY meperidine Allergy Unknown BRUISING Verified 04/30/20 01:21 AND SEVERE BURNING IN IV FORM morphine AdvReac Intermediate Anxiety Verified 04/30/20 01:21 adhesive AdvReac Unknown RASH Verified 04/30/20 01:21 Past Med/Surg History Medical History Adenocarcinoma of appendix Atrophic vulvovaginitis Hypothyroidism Osteopenia Small bowel obstruction Surgical History H/O ovarian cystectomy History of appendectomy 2001, cancer History of cholecystectomy History of decompression of median nerve At Carpal Tunnel History of hysterectomy With removal of both ovaries, 2001, first surgery, resection of part of large bowel. History of resection of small bowel 2003 S/P hip replacement S/P tonsillectomy Family History Mother Arthritis Father Arthritis Grandmother (Maternal) FH: kidney cancer Other Osteoporosis Denies family history of Ovarian cancer Breast cancer Colorectal cancer Social History Smoking Status: Never smoker Second Hand Exposure: No; Hx Alcohol Use: Yes Alcohol type: beer and wine Hx Substance Use: No Preferred Language: Mauritian Communication Ability: Effective Tafe Lecturer Required: No Beliefs That Will Affect Care: None marital status: Current Living Situation: Spouse Feels Safe at Home: Yes Assistive Devices: Glasses Review of Systems A total of 10 systems reviewed and were otherwise negative Physical Exam Vital Signs Vital Signs - 24 hr 04/29/20 22:50 04/30/20 00:41 04/30/20 03:00 Temperature 36.5 C Temperature Source Oral Pulse Rate 74 Pulse Rate [Finger] 73 67 Respiratory Rate 22 18 18 Respiratory Effort / Characteristics Non-Labored Spontaneous Respiratory Depth Normal Respiratory Pattern Regular Blood Pressure 134/89 Blood Pressure [Left Arm] 130/74 100/62 Blood Pressure Mean 104 Blood Pressure Mean [Left Arm] 92 74 Pulse Oximetry 98 99 98 Oxygen Delivery Method Room Air Room Air Room Air Sepsis Recent Fever Within 48 Hours No Sepsis New/Unexplained Change in Mental Status N/A Sepsis Action Taken by Nursing No Action Required VITAL SIGNS - Vital signs and nursing notes were reviewed. Stable and afebrile. GENERAL - 64-year-old female appearing her stated age who is in no acute distress but appears to be in pain. Communicates well with provider and answers questions appropriately. SKIN - Without rashes. HEAD - NC/AT. NECK - Neck with FROM. No nuchal rigidity. LUNGS - Chest wall symmetric without accessory muscle use, intercostals retractions, or central cyanosis. Normal vesicular breath sounds CTA B/L. No wheezes, rales, or rhonchi appreciated. CARDIAC - RRR with S1/S2. No murmur, rubs, or gallops appreciated. ABDOMEN - Abdominal contour normal without pulsations or visible masses. Right- sided abdominal tenderness to palpation. BS normoactive all four quadrants. No palpable masses, hepatosplenomegaly, or ascites noted. NEUROLOGIC - Cranial nerves II through XII grossly intact. PSYCH - A&O, and cooperates fully with examiner. Pt is very pleasant and interacts well with examiner. Course Administered Medications Enoxaparin Sodium (Enoxaparin Inj 40 Mg/0.4 Ml Syr) 40 mg SQ Q24H MAGNUS Stop: 05/30/20 07:59 Last Admin: 04/30/20 07:00 Dose: Not Given Documented by: [id number] Dextrose/Lactated Ringer's (D5w And Lactated Ringers) 1,000 mls @ 80 mls/hr IV .[id number] MAGNUS Stop: 05/01/20 06:59 Last Infusion: 04/30/20 14:57 Dose: 80 mls/hr Documented by: [id number] Admin: 04/30/20 13:42 Dose: 80 mls/hr Documented by: [id number] Infusion: 04/30/20 13:42 Dose: 80 mls/hr Documented by: [id number] Admin: 04/30/20 06:59 Dose: 80 mls/hr Documented by: [id number] Thyroid ([place] Thyroid 30 Mg Tab) 90 mg PO DAILY MAGNUS Stop: 05/30/20 08:59 Last Admin: 04/30/20 08:09 Dose: 90 mg Documented by: [id number] Discontinued Medications Hydromorphone HCl (Hydromorphone Inj 0.5 Mg/0.5 Ml Syr) 0.5 mg IV NOW STA Stop: 04/29/20 23:18 Last Admin: 04/29/20 23:40 Dose: 0.5 mg Documented by: [id number] Dextrose/Lactated Ringer's (D5w And Lactated Ringers) 1,000 mls @ 100 mls/hr IV .Q10H MAGNUS Stop: 05/30/20 01:59 Last Infusion: 04/30/20 07:34 Dose: 0 mls/hr Documented by: [id number] Admin: 04/30/20 02:01 Dose: 100 mls/hr Documented by: [id number] Ioversol (Ioversol 100ml) 95 ml IV ONCE ONE Stop: 04/30/20 00:33 Last Admin: 04/30/20 00:32 Dose: 95 ml Documented by: [id number] Ondansetron HCl (Ondansetron Inj 2 Mg/Ml 2 Ml Vial) 4 mg IV NOW STA Stop: 04/29/20 23:18 Last Admin: 04/29/20 23:41 Dose: 4 mg Documented by: [id number] Medical Decision Making Laboratory Data Result diagrams: 04/29/20 23:22 04/29/20 23:22 Lab Results 04/29/20 04/29/20 Range/Units 23:22 23:22 WBC 11.56 H (4.8-10.8) K/uL RBC 3.82 L (4.2-5.4) M/uL Hgb 11.8 L (12.0-16.0) g/dL Hct 35.2 L (37-47) % MCV 92.1 (80-100) fL MCH 30.9 (25-34) pg MCHC 33.5 (32-36) g/dL RDW Std Deviation 43.8 (36.4-46.3) fL RDW Coeff of Rodrigo 13.0 (11.5-14.5) % Plt Count 253 (130-400) K/uL MPV 8.9 (7.4-10.4) fL Immature Gran % (Auto) 0.2 % Neut % (Auto) 77.1 % Lymph % (Auto) 15.6 % [place] % (Auto) 5.8 % Eos % (Auto) 1.0 % Baso % (Auto) 0.3 % Neut # (Auto) 8.92 H (1.4-6.5) K/uL Lymph # (Auto) 1.80 (1.2-3.4) K/uL [place] # (Auto) 0.67 H (0.11-0.59) K/uL Eos # (Auto) 0.12 (0-0.5) K/uL Baso # (Auto) 0.03 (0-0.2) K/uL Immature Gran # (Auto) 0.02 (0.00-0.02) K/uL Sodium 137 (136-145) mmol/L Potassium 3.5 (3.5-5.1) mmol/L Chloride 105 (98-107) mmol/L Carbon Dioxide 25 (21-32) mmol/L Anion Gap 7.0 (3-11) BUN 12 (7-18) mg/dl Creatinine 0.85 (0.6-1.2) mg/dl Est Cr Clr Drug Dosing 69.2 ml/min Est GFR ( Amer) 85.1 Est GFR (Non-Af Amer) 73.4 BUN/Creatinine Ratio 14.5 (10-20) Glucose 104 H (70-99) mg/dl Calcium 9.4 (8.5-10.1) mg/dl Magnesium 2.2 (1.8-2.4) mg/dl Total Bilirubin 0.4 (0.2-1) mg/dl AST 17 (15-37) U/L ALT 28 (12-78) U/L Alkaline Phosphatase 89 (45-117) U/L Total Protein 7.4 (6.4-8.2) gm/dl Albumin 3.9 (3.4-5.0) gm/dl Globulin 3.5 (2.5-4.0) gm/dl Albumin/Globulin Ratio 1.1 (0.9-2) Lipase 139 (73-393) U/L Imaging Data Radiologist's Impression: CT ABDOMEN & PELVIS With Contrast: Status post cholecystectomy with mild extrahepatic ductal dilation. Suture lines seen in the level of the mid small bowel. Fluid-filled loops of small bowel are seen in the right abdomen. Additional suture lines in the right lower quadrant. Transition point is seen from mid to right lower quadrant consistent with mild obstruction. Findings are similar to previous exam. Left hip prosthesis. Status post hysterectomy. Radiologist: Joie Hernandez MD Study ready at 00:42 and initial results transmitted at 00:57 MDM Narrative Patient was seen and evaluated as above in room a 11. Review was performed of nursing notes and vital signs. I did review pertinent previous visits and patient history. After obtaining a thorough history and physical examination the above work up was performed. She presents to us today with atraumatic abdominal pain. She notes a history of bowel obstructions and this feels similar. Options of care were discussed with the patient. Labs were drawn. She was gi kelin antiemetics and analgesics. Mild leukocytosis. Mild anemia. No emergent metabolic disturbance. CT scan was obtained of the abdomen pelvis and reveals what appears to be a mild small bowel obstruction. Covid testing negative per current protocol for inpatient management. Case discussed with attending physician. Inpatient management was felt to be reasonable. Case discussed with the hospitalist. Please refer to further documentation regarding her stay. Case was discussed with the attending physician. In the evaluation and treatment of this patient, the following differential diagnoses were considered: ASC, [place], Pneumonia, GERD, Cholecystitis, Ascending Cholangitis, Cholydocholithiasis, Bowel Obstruction, PE, Amongst Others. Attending Attestation: Naty Moffett MD independently saw and evaluated this patient and agree with history and physical is otherwise documented by the physician assistant dean. See their note for full details. Patient resting in bed with minimal abdominal pain/tenderness in no distress. Extensive discussion on risk and benefits of hospital stay given SBO and hx. After discussion patient will to stay and states she feels a bit dehydrated still. MIVF ordered. Impression & Plan Small bowel obstruction Discharge Plan Visit Data Chief Complaint: Abdominal Pain Stated Complaint: ABD PAIN ED Provider: Ron Moffett ED Midlevel Provider: Berto Olivier Discharge Problem: Small bowel obstruction Patient Disposition: Admitted As Inpatient Condition: Good Discharge Instructions Interventions: ED Discharge Assessment Last Done: 04/30/20 05:46
[2020-04-29] MEDS ORDERED: HYDROmorphone INJ 0.5 MG/0.5 ML SYR IV STA (23:17)
[2020-04-29] MEDS ORDERED: ONDANSETRON INJ 2 MG/ML 2 ML VIAL IV STA (23:17)
[2020-04-29 23:31] LABS: Basophils # (auto) 0.03 K/uL (0-0.2); Basophils % (auto) 0.3 %; Eosinophils # (auto) 0.12 K/uL (0-0.5); Hematocrit (blood only) 35.2 % (37-47); Hemoglobin 11.8 g/dL (12.0-16.0); Immature Granulocytes # (auto) 0.02 K/uL (0.00-0.02); Immature Granulocytes % (auto) 0.2 %; Lymphocytes % (auto) 15.6 %; Mean Corpuscular Hemoglobin 30.9 pg (25-34); Mean Corpuscular Hgb Conc 33.5 g/dL (32-36); Mean Corpuscular Volume 92.1 fL (80-100); Mean Platelet Volume 8.9 fL (7.4-10.4); Monocytes # (auto) 0.67 K/uL (0.11-0.59); Monocytes % (auto) 5.8 %; Neutrophils # (auto) 8.92 K/uL (1.4-6.5); Neutrophils % (auto) 77.1 %; Platelet Count 253 K/uL (130-400); RDW Standard Deviation 43.8 fL (36.4-46.3); Red Blood Count 3.82 M/uL (4.2-5.4); White Blood Count 11.56 K/uL (4.8-10.8)
[2020-04-29 23:48] LABS: Albumin Level 3.9 gm/dl (3.4-5.0); BUN Creatinine Ratio 14.5 (10-20); Calcium 9.4 mg/dl (8.5-10.1); Creatinine Clr Calc Pharmacy 69.2 ml/min; Est GFR (African American) 85.1; Est GFR (Non-African American) 73.4; Magnesium 2.2 mg/dl (1.8-2.4); Potassium 3.5 mmol/L (3.5-5.1)
[2020-04-29 23:51] LABS: Albumin Globulin Ratio 1.1 (0.9-2); Bilirubin,Total 0.4 mg/dl (0.2-1); Globulin 3.5 gm/dl (2.5-4.0); Total Protein 7.4 gm/dl (6.4-8.2)
[2020-04-30] MEDS ORDERED: IOVERSOL 100ml IV ONE (00:32)
[2020-04-30] MEDS ORDERED: D5W AND LACTATED RINGERS 1,000 ML IV SCH (02:00)
--- NOTE | 2020-04-30 05:09 | History & Physical Report ---
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 CT suggestive of SBO. Pain presently well controlled. Nausea improved. Non-toxic in appearance. Admit to medical floor -Conservative management - bowel rest, IVF and electrolyte repletion -Zofran 4mg IV q 6 hours as needed for nausea Dilaudid 0.5mg IV q 4 hours as needed for pain Surgery consultation if symptoms persist or worsen - not ordered Present on Admission?: Yes (2) Hypothyroidism: Chronic -Patient may continue [place] thyroid F/E/N - LR at 80mL/hr x 2 liters, electrolytes WNL, NPO for now - advance diet as tolerated Ppx - Lovenox 40mg Code - Full per discussion with patient Disp - Admit to medical/surgical Present on Admission?: Yes History of Present Illness Chief Complaint: Abdominal pain, SBO Primary Care Provider: Toney Villasenor Sharron Romero is a 64yo C female with history of multiple abdominal surgeries - cholecystecomy, hysterectomy, appendiceal cancer s/p resection and chemotherapy, frequent SBOs presenting with abdominal pain. Patient's pain has been progressively worsening since yesterday afternoon - diffuse, across her abdomen with radiation into her back. She had some nausea which has since resolved. Mild abdominal distention and bloating. No flatus. Last BM yesterday afternoon. Symptoms are similar to prior SBO. Pain currently well controlled. No additional complaints at this time. No Covid-19 symptoms - specifically no fevers/chills/cough/SOB/CP/diarrhea/loss of taste or smell. Admission Covid testing pending ER Course: Dilaudid, Zofran Allergies Allergy/AdvReac Type Severity Reaction Status Date / Time barium sulfate Allergy Severe "SEVERELY Verified 04/30/20 01:21 ILL", GI promethazine Allergy Mild INTOLERANCE, Verified 04/30/20 01:21 DIZZY meperidine Allergy Unknown BRUISING Verified 04/30/20:21 AND SEVERE BURNING IN IV FORM morphine AdvReac Intermediate Anxiety Verified 04/30/20 01:21 adhesive AdvReac Unknown RASH Verified 04/30/20 01:21 Home Medications Medication Instructions Recorded Confirmed Type pantoprazole [Protonix] 40 mg PO QPM 03/04/18 04/30/20 History potassium chloride 10 meq PO QAM 03/04/18 04/30/20 History thyroid (pork) [[place] Thyroid] 90 mg PO DAILY 03/04/18 04/30/20 History calcium carbonate [Calcium 600] 1,200 mg PO DAILY 08/22/19 04/30/20 History cholecalciferol (vitamin D3) 125 mcg PO DAILY 08/22/19 04/30/20 History [Vitamin D3] cyanocobalamin (vitamin B-12) 1,000 mcg SUBLINGUAL 3XWK 08/22/19 04/30/20 History ferrous sulfate 325 mg PO 4XWK 08/22/19 04/30/20 History multivitamin with minerals 1 tab PO DAILY 08/22/19 04/30/20 History [Multiple Vitamin-Minerals] vitamin E 400 unit PO DAILY 08/22/19 04/30/20 History docusate sodium [Colace] 100 mg PO BID #1 cap 08/23/19 04/30/20 Rx bisacodyl 5 mg tablet,delayed 5 mg PO UD 09/21/19 04/30/20 History release lutein 6 mg tablet 6 mg PO UD 09/21/19 04/30/20 History conjugated estrogens 0.625 mg/gram 0.625 mg PV 2XWK #30 gm 02/29/20 04/30/20 Rx vaginal cream Past Med/Surg History Medical History (Updated 04/30/20 @ 05:04 by Yuliya Alexander DO) Adenocarcinoma of appendix Atrophic vulvovaginitis Hypothyroidism Osteopenia Small bowel obstruction Surgical History H/O ovarian cystectomy History of appendectomy 2001, cancer History of cholecystectomy History of decompression of median nerve At Carpal Tunnel History of hysterectomy With removal of both ovaries, 2001, first surgery, resection of part of large bowel. History of resection of small bowel 2003 S/P hip replacement S/P tonsillectomy Family History Mother Arthritis Father Arthritis Grandmother (Maternal) FH: kidney cancer Other Osteoporosis Denies family history of Ovarian cancer Breast cancer Colorectal cancer Social History (Updated 02/29/20 @ 15:20 by Ijeoma Cordova) Smoking Status: Never smoker Second Hand Exposure: No; Hx Alcohol Use: Yes Alcohol type: beer and wine Hx Substance Use: No Preferred Language: Croatian Communication Ability: Effective Supervisor [employer] Required: No Beliefs That Will Affect Care: None marital status: Current Living Situation: Spouse Feels Safe at Home: Yes Assistive Devices: Glasses Review of Systems Review of Systems: All systems reviewed & are unremarkable except as noted in HPI & below Physical Exam Physical Exam: General: patient resting, NAD, non-toxic in appearance, AA&O x 4 Skin: warm, dry, intact, no rashes or lesions HEENT: NC/AT, PERRL, EOMI, anicteric sclera, conjunctiva without injection, external ear normal to inspection and nontender, nares patent, moist mucus membranes, dentition intact, no oropharyngeal lesions, neck supple, trachea midline, no LAD, no thyromegaly, no JVD Heart: +S1/S2, regular, no m/r/g Lungs: equal air entry bilaterally, no rales/rhonchi/wheezes Abd: diminished bowel sounds, abdomen flat, soft, diffusely tender with voluntary guarding, no masses/organomegaly/ascites Ext: warm, 2+ pulses in UE/LE bilaterally, no clubbing/cyanosis or edema Neuro: nonfocal, patient AA&O x 4, speech intact, no facial droop, moving all extremities on command with equal strength 5/5 Results & Data Results & Data ([facility]) Vital Signs (Past 12 Hours) Vital Signs Temp Pulse Pulse Resp BP BP Pulse Ox 04/30/20 04:28 67 16 104/63 97 04/30/20 03:00 67 18 100/62 98 04/30/20 00:41 73 18 130/74 99 04/29/20 22:50 36.5 C 74 22 134/89 98 Laboratory Results Lab Results 04/29/20 04/29/20 04/30/20 Range/Units 23:22 23:22 04:29 WBC 11.56 H (4.8-10.8) K/uL RBC 3.82 L (4.2-5.4) M/uL Hgb 11.8 L (12.0-16.0) g/dL Hct 35.2 L (37-47) % MCV 92.1 (80-100) fL MCH 30.9 (25-34) pg MCHC 33.5 (32-36) g/dL RDW Std Deviation 43.8 (36.4-46.3) fL RDW Coeff of Rodrigo 13.0 (11.5-14.5) % Plt Count 253 (130-400) K/uL MPV 8.9 (7.4-10.4) fL Immature Gran % (Auto) 0.2 % Neut % (Auto) 77.1 % Lymph % (Auto) 15.6 % Cassia % (Auto) 5.8 % Eos % (Auto) 1.0 % Baso % (Auto) 0.3 % Neut # (Auto) 8.92 H (1.4-6.5) K/uL Lymph # (Auto) 1.80 (1.2-3.4) K/uL Cassia # (Auto) 0.67 H (0.11-0.59) K/uL Eos # (Auto) 0.12 (0-0.5) K/uL Baso # (Auto) 0.03 (0-0.2) K/uL Immature Gran # (Auto) 0.02 (0.00-0.02) K/uL Sodium 137 (136-145) mmol/L Potassium 3.5 (3.5-5.1) mmol/L Chloride 105 (98-107) mmol/L Carbon Dioxide 25 (21-32) mmol/L Anion Gap 7.0 (3-11) BUN 12 (7-18) mg/dl Creatinine 0.85 (0.6-1.2) mg/dl Est Cr Clr Drug Dosing 69.2 ml/min Est GFR ( Amer) 85.1 Est GFR (Non-Af Amer) 73.4 BUN/Creatinine Ratio 14.5 (10-20) Glucose 104 H (70-99) mg/dl Calcium 9.4 (8.5-10.1) mg/dl Magnesium 2.2 (1.8-2.4) mg/dl Total Bilirubin 0.4 (0.2-1) mg/dl AST 17 (15-37) U/L ALT 28 (12-78) U/L Alkaline Phosphatase 89 (45-117) U/L Total Protein 7.4 (6.4-8.2) gm/dl Albumin 3.9 (3.4-5.0) gm/dl Globulin 3.5 (2.5-4.0) gm/dl Albumin/Globulin Ratio 1.1 (0.9-2) Lipase 139 (73-393) U/L COVID-19 Eval [facility] Abdomen and Pelvis with contrast: s/p cholecystectomy with mild extrahepatic ductal dilation. Suture lines seen in the level of the mid small bowel. Fluid-filled looops of small bowel are seen in the right abdomen. Additional suture lines in the right lower quadrant. Transition point is seen from mid to right lower quadrant consistent with mild obstruction. Findings are similar to previous exam. LEft hip prosthesis. S/p hysterectomy. Code Status & VTE Plan VTE Prophylaxis Plan VTE Prophylaxis will be ordered: Yes PG Care Time/CCT Total # of Minutes Spent Total Time Spent with Patient: Total time spent is greater than 50% in coordination of care (as documented) at patient's floor/unit and/or counseling patient: Coding Level of Care Code 99171 Initial Inpt Care Lvl 2 Diagnoses Small bowel obstruction K56.609 Hypothyroidism E03.9 Hypothyroidism type: unspecified (1) Hypothyroidism Hypothyroidism type: unspecified Qualified Code(s): E03.9 - Hypothyroidism, unspecified
[2020-04-30] MEDS ORDERED: ONDANSETRON INJ 2 MG/ML 2 ML VIAL IV PRN (06:26)
[2020-04-30] MEDS ORDERED: HYDROmorphone INJ 0.5 MG/0.5 ML SYR IV PRN (06:26)
[2020-04-30] MEDS: D5W AND LACTATED RINGERS 1,000 ML IV SCH ×2 (06:59→13:42)
[2020-04-30] MEDS: ENOXAPARIN INJ 40 MG/0.4 ML SYR SQ SCH (07:00)
[2020-04-30] MEDS: ARMOUR THYROID 30 MG TAB PO SCH (08:09)
--- NOTE | 2020-04-30 08:18 | CT Scan Report ---
ABDOMEN AND PELVIS CT WITH IV CONTRAST CT DOSE: 398.01 mGy.cm HISTORY: Right-sided abdominal pain. History of small bowel obstruction. TECHNIQUE: Multiaxial CT images of the abdomen and pelvis were performed following the use of intrave nous contrast. A dose lowering technique was utilized adhering to the principles of ALARA. COMPARISON STUDY: Abdomen and pelvis CT 08/22/2019. FINDINGS: The lung bases are essentially clear. No pneumoperitoneum. No pneumatosis. There is a left total hip arthroplasty. No fractures within the visualized osseous structures. Cholecystectomy. Mild intrahepatic bile duct dilatation, unchanged. No hepatic or splenic masses. The adrenal glands, pancr eas, kidneys are within normal limits. No hydronephrosis. No retroperitoneal lymphadenopathy. Normal caliber abdominal aorta. Deep pelvic structures are partially obscured by the left hip prosthesis. Th e visualized bladder is unremarkable. The uterus is surgically absent. There is mild pelvic floor col lapse. Evidence for prior right hemicolectomy with ileocolic anastomosis. Multiple dilated and fluid- filled loops of small bowel seen predominantly within the right side the abdomen and the pelvis. Ther e is associated tethering within the right hemipelvis with a probable transition point at this locati on. This is nearly identical to the prior studies IMPRESSION: Multiple loops of mild to moderately dilated and fluid-filled small bowel with probable transition po int within the right hemipelvis. Although similar in appearance to the prior CT examinations, finding s likely represent a chronic small bowel obstruction. ACT 112: Negative or not required by law. Electronically signed by: Cuco Nails M.D. 04/30/2020 8:16 AM
[2020-04-30] MEDS ORDERED: ACETAMINOPHEN 1,000 MG/100 ML VIAL IV PRN (15:22)
[2020-04-30] MEDS ORDERED: ACETAMINOPHEN 325 MG TAB PO PRN (15:22)
[2020-04-30] MEDS ORDERED: NURSING DECISION MEDICATION ONE (16:38)
[2020-04-30] MEDS ORDERED: SODIUM CHLORIDE 0.65% NA SOLN 45 ML (OCEAN) PRN (16:41)
[2020-05-01] MEDS: ARMOUR THYROID 30 MG TAB PO SCH (07:17)
[2020-05-01] MEDS: ENOXAPARIN INJ 40 MG/0.4 ML SYR SQ SCH (07:18)
[2020-05-01 08:10] LABS: Basophils # (auto) 0.02 K/uL (0-0.2); Basophils % (auto) 0.3 %; Eosinophils # (auto) 0.23 K/uL (0-0.5); Eosinophils % (auto) 3.9 %; Hematocrit (blood only) 34.9 % (37-47); Hemoglobin 11.3 g/dL (12.0-16.0); Immature Granulocytes # (auto) 0.01 K/uL (0.00-0.02); Immature Granulocytes % (auto) 0.2 %; Lymphocytes # (auto) 1.52 K/uL (1.2-3.4); Lymphocytes % (auto) 26.1 %; Mean Corpuscular Hemoglobin 30.5 pg (25-34); Mean Corpuscular Hgb Conc 32.4 g/dL (32-36); Mean Corpuscular Volume 94.3 fL (80-100); Mean Platelet Volume 9.2 fL (7.4-10.4); Monocytes # (auto) 0.75 K/uL (0.11-0.59); Monocytes % (auto) 12.9 %; Neutrophils % (auto) 56.6 %; Platelet Count 236 K/uL (130-400); RDW Coefficient of Variation 13.1 % (11.5-14.5); RDW Standard Deviation 45.3 fL (36.4-46.3); White Blood Count 5.83 K/uL (4.8-10.8)
[2020-05-01 08:36] LABS: BUN Creatinine Ratio 8.7 (10-20); Calcium 8.8 mg/dl (8.5-10.1); Creatinine Clr Calc Pharmacy 77.4 ml/min; Est GFR (African American) 97.4; Est GFR (Non-African American) 84.1; Potassium 4.3 mmol/L (3.5-5.1)
--- NOTE | 2020-05-01 10:32 | Discharge Summary ---
Date of Service May 01, 2020 Admission HPI Per Admitting Provider Sharron Romero is a 64yo C female with history of multiple abdominal surgeries - cholecystecomy, hysterectomy, appendiceal cancer s/p resection and chemotherapy, frequent SBOs presenting with abdominal pain. Patient's pain has been progressively worsening since yesterday afternoon - diffuse, across her abdomen with radiation into her back. She had some nausea which has since resolved. Mild abdominal distention and bloating. No flatus. Last BM yesterday afternoon. Symptoms are similar to prior SBO. Pain currently well controlled. No additional complaints at this time. No Covid-19 symptoms - specifically no fevers/chills/cough/SOB/CP/diarrhea/loss of taste or smell. Admission Covid testing pending ER Course: June Weber Admission Exam Per Admitting Provider General: patient resting, NAD, non-toxic in appearance, AA&O x 4 Skin: warm, dry, intact, no rashes or lesions HEENT: NC/AT, PERRL, EOMI, anicteric sclera, conjunctiva without injection, external ear normal to inspection and nontender, nares patent, moist mucus membranes, dentition intact, no oropharyngeal lesions, neck supple, trachea midline, no LAD, no thyromegaly, no JVD Heart: +S1/S2, regular, no m/r/g Lungs: equal air entry bilaterally, no rales/rhonchi/wheezes Abd: diminished bowel sounds, abdomen flat, soft, diffusely tender with voluntary guarding, no masses/organomegaly/ascites Ext: warm, 2+ pulses in UE/LE bilaterally, no clubbing/cyanosis or edema Neuro: nonfocal, patient AA&O x 4, speech intact, no facial droop, moving all extremities on command with equal strength 5/5 Principal Diagnosis SBO Discharge Exam Constitutional WD/WN, vitals as above Eyes PERRL, conjunctivae normal, anicteric sclerae ENMT external ear and nose normal, oropharynx normal Respiratory normal respiratory effort, lungs clear to auscultation Cardiovascular RRR, no murmur, no edema Gastrointestinal (Abdomen) normal bowel sounds, soft, nontender, no hepatosplenomegaly Skin no rashes, warm and dry Neurologic PERRL, EOMI, accommodation nl, no face palsy, no dysarthria Psychiatric A+Ox3, euthymic affect Discharge Data Allergies Allergy/AdvReac Type Severity Reaction Status Date / Time barium sulfate Allergy Severe "SEVERELY Verified 04/30/20 01:21 ILL", GI promethazine Allergy Mild INTOLERANCE, Verified 04/30/20 01:21 DIZZY meperidine Allergy Unknown BRUISING Verified 04/30/20 01:21 AND SEVERE BURNING IN IV FORM morphine AdvReac Intermediate Anxiety Verified 04/30/20 01:21 adhesive AdvReac Unknown RASH Verified 04/30/20 01:21 Consultations 04/30/20 01:52 ED Decision to Admit Stat Ordered Studies 04/29/20 23:06 CT abd pelvis IV con only Urgent Hospital Course (1) Small bowel obstruction: 64-year-old female with history of multiple abdominal surgeries, 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 CT suggestive of SBO. Pain presently well controlled. Nausea improved. Non-toxic in appearance. Small Bowel Obstruction - recurrent (h/o multiple abdominal surgeries) Admit to medical floor -Conservative management - bowel rest, IVF and electrolyte repletion -Patient had 3 bowel movements while admitted without difficulties -Tolerated advancement of diet -Stable for discharge. Hypothyroidism -Chronic -Continued [place] Thyroid -TSH was not checked but at last admission was found to be high at 9, would recommend future follow up screening in 1-2 months. (2) Hypothyroidism: Total Time Total Time Spent Total Time Spent (In Minutes): see attending attestation Discharge Plan Discharge Items Patient Disposition: Home - Self-Care Reason For Visit: ABDOMINAL PAIN Discharge Diagnosis: Small Bowel Obstruction Condition on Discharge: Good Activity: Resume your previous activity Non-emergency contact: Primary Care Provider Call non-emergency contact if: your symptoms worsen Follow-up/Referrals: Toney Villasenor [Primary Care Provider] - (INCREASED COVID CASES CAN'T SCHEDULE PATIENT UPON DISCHARGE. OFFICE, [facility] WILL CALL PATIENT TO SCHEDULE F/U.) Diet: Regular Addtl Attending Provider Instructions: Ms. Romero, It was our pleasure caring for you at [facility] from 04/30- 05/01/20 for your small bowel obstruction. Please see below for a summary of your care. Small Bowel Obstruction -On your admission you were noted to have a small bowel obstruction seen primarily on CT scan. -You were treated with conservative management including bowel rest, IV fluids, and pain medications. -You did remarkably well and improved rapidly, having 3 bowel movements while inpatient and able to tolerate regular foods -We would recommend that you continue to eat less exotic foods in the next day or two (BRAT diet) to give your bowels more of a rest. -If your symptoms return or worsen, please return to the ED for reevaluation. -Please follow up with your PCP at your next scheduled appointment. Hypothyroidism -While we did not check your TSH levels during this stay, they were found to be elevated at your last stay in August. -Please have your levels rechecked by your PCP in the next month or so to ensure that you are on an appropriate amount of replacement therapy. Pending Studies at Discharge: No Stand-Alone Forms: [facility], Sm[facility] Cessation Medications and DC Order Prescriptions: Continued lutein 6 mg tablet 6 mg PO UD RF: 0 bisacodyl 5 mg tablet,delayed release (DR/EC) 5 mg PO UD RF: 0 conjugated estrogens 0.625 mg/gram cream 0.625 mg PV 2XWK Qty: 30 RF: 2 pantoprazole [Protonix] 40 mg Tablet,Delayed Release (Dr/Ec) 40 mg PO QPM RF: 0 potassium chloride 10 mEq Tablet Extended Release 10 meq PO QAM RF: 0 thyroid (pork) [[place] Thyroid] 90 mg Tablet 90 mg PO DAILY RF: 0 ferrous sulfate 325 mg (65 mg iron) Tablet 325 mg PO 4XWK RF: 0 multivitamin with minerals [Multiple Vitamin-Minerals] Tablet 1 tab PO DAILY RF: 0 cholecalciferol (vitamin D3) [Vitamin D3] 125 mcg (5,000 unit) Tablet 125 mcg PO DAILY RF: 0 cyanocobalamin (vitamin B-12) 1,000 mcg Tablet, Sublingual 1,000 mcg SUBLINGUAL 3XWK RF: 0 vitamin E 400 unit Capsule 400 unit PO DAILY RF: 0 calcium carbonate [Calcium 600] 600 mg calcium (1,500 mg) Tablet 1,200 mg PO DAILY RF: 0 docusate sodium [Colace] 100 mg capsule 100 mg PO BID Qty: 1 RF: 0 Discharge Orders: Discharge Order (Routine); Ordered 05/01/20 Ordered By: Deep Noel/Other Patient Handouts: Abdominal Pain Admission Data Admit Date/Time: 04/30/20 04:01 Attending Provider: Anali Hernandez Admit Provider: Yuliya Alexander Primary Care Provider: Toney Villasenor Other Providers: Yuliya Alexander Other Interventions: Discharge Summary Assessment (RN) Last Done: 05/01/20 10:44 Supervising Physician Co-Signing Physician Notes Resident Physician Supervision Note: I independently interviewed and examined the patient and verified the crews history and physical, reviewed labs and image studies, discussed the case with the resident Dr. Boswell and agree with the findings and care plan. Resident Activity Tracking Resident Involvement: Resident Care Provided Care Provided: Adult Hospital Medicine
== END 2020-05-01 12:21 | disposition home or self-care (01) | DRG 390 ==
LOC: ED 22:49 → 3N 04-30 04:01 → SUATTDRO 04-30 04:01 → 3N 04-30 05:46

== ENCOUNTER 2020-07-19 04:57 | Inpatient (IN) ==
[2020-07-19] MEDS ORDERED: ONDANSETRON INJ 2 MG/ML 2 ML VIAL IV STA ×2 (05:12→07:30)
[2020-07-19] MEDS ORDERED: HYDROmorphone INJ 1 MG/ML SYRINGE IV STA (05:12)
[2020-07-19] MEDS ORDERED: SODIUM CHLORIDE 0.9% 1000ML 1,000 ML IV SCH (05:13)
--- NOTE | 2020-07-19 05:17 | Emergency Department Note ---
History of Present Illness General Chief complaint: GI Assessment Stated complaint: bowl blockage Time Seen by Provider: 07/19/20 05:08 Source: patient Mode of arrival: ambulatory Limitations: no limitations History of Present Illness Maximum Pain Intensity: 7 This patient is a 64-year-old female who presents to the emergency department for evaluation of abdominal pain. Patient states that her pain started last n ight. She has pain across her lower abdomen. She has had associated vomiting. She rates her pain a 7/10. She tried an oxycodone at home which did not help. Patient reports her symptoms feel like her previous bowel obstructions. She has had multiple obstructions due to adhesions. She denies fevers, chest pain, shortness of breath, urinary symptoms. She denies any recent COVID-19 infection or exposure. Home Medications Medication Instructions Recorded Confirmed Type pantoprazole [Protonix] 40 mg PO QPM 03/04/18 07/19/20 History potassium chloride 10 meq PO QAM 03/04/18 07/19/20 History calcium carbonate [Calcium 600] 1,200 mg PO DAILY 08/22/19 07/19/20 History cholecalciferol (vitamin D3) 125 mcg PO DAILY 08/22/19 07/19/20 History [Vitamin D3] cyanocobalamin (vitamin B-12) 1,000 mcg SUBLINGUAL 3XWK 08/22/19 07/19/20 History ferrous sulfate 325 mg PO 4XWK 08/22/19 07/19/20 History multivitamin with minerals 1 tab PO DAILY 08/22/19 07/19/20 History [Multiple Vitamin-Minerals] vitamin E 400 unit PO DAILY 08/22/19 07/19/20 History docusate sodium [Colace] 100 mg PO BID #1 cap 08/23/19 07/19/20 Rx bisacodyl 5 mg tablet,delayed 5 mg PO DIRECTED 09/21/19 07/19/20 History release lutein 6 mg tablet 6 mg PO DAILY 09/21/19 07/19/20 History conjugated estrogens 0.625 mg/gram 0.625 mg PV 2XWK #30 gm 02/29/20 07/19/20 Rx vaginal cream thyroid (pork) [[place] Thyroid] 90 mg PO DAILY 07/19/20 07/19/20 History Allergies Allergy/AdvReac Type Severity Reaction Status Date / Time barium sulfate Allergy Severe "SEVERELY Verified 07/19/20 05:51 ILL", GI promethazine Allergy Mild INTOLERANCE, Verified 07/19/20 05:51 DIZZY meperidine Allergy Unknown BRUISING Verified 07/19/20 05:51 AND SEVERE BURNING IN IV FORM adhesive AdvReac Unknown RASH Verified 07/19/20 05:51 Past Med/Surg History Medical History Adenocarcinoma of appendix Atrophic vulvovaginitis Hypothyroidism Osteopenia Small bowel obstruction Surgical History H/O ovarian cystectomy History of appendectomy 2001, cancer History of cholecystectomy History of decompression of median nerve At Carpal Tunnel History of hysterectomy With removal of both ovaries, 2001, first surgery, resection of part of large bowel. History of resection of small bowel 2003 S/P hip replacement S/P tonsillectomy Family History Mother Arthritis Father Arthritis Grandmother (Maternal) FH: kidney cancer Other Osteoporosis Denies family history of Ovarian cancer Breast cancer Colorectal cancer Social History Smoking Status: Never smoker Second Hand Exposure: No; Hx Alcohol Use: Yes Alcohol type: beer and wine Hx Substance Use: No Preferred Language: Slovenian Communication Ability: Effective Gis Analyst Required: No Beliefs That Will Affect Care: None marital status: Current Living Situation: Spouse Other Information That Helps Us Care for You: No Feels Safe at Home: Yes Assistive Devices: Glasses Review of Systems A total of 10 systems reviewed and were otherwise negative Physical Exam Vital Signs Vital Signs - 24 hr 07/19/20 05:01 07/19/20 05:25 07/19/20 05:36 Temperature 36.9 C Temperature Source Temporal Artery Scan Pulse Rate 72 65 Pulse Rate from SpO2 Sensor 65 Respiratory Rate 22 16 Blood Pressure 113/76 122/70 Blood Pressure Mean 88 87 Pulse Oximetry 100 100 100 Oxygen Delivery Method Room Air Nasal Cannula Oxygen Flow Rate 2 Sepsis Recent Fever Within 48 Hours No Sepsis New/Unexplained Change in Mental Status No Sepsis Action Taken by Nursing No Action Required 07/19/20 06:11 07/19/20 06:30 Temperature Temperature Source Pulse Rate 75 76 Pulse Rate from SpO2 Sensor 74 76 Respiratory Rate 18 18 Blood Pressure 132/84 133/88 Blood Pressure Mean 100 103 Pulse Oximetry 100 98 Oxygen Delivery Method Oxygen Flow Rate Sepsis Recent Fever Within 48 Hours Sepsis New/Unexplained Change in Mental Status Sepsis Action Taken by Nursing VITALS: Vitals are noted on the nurse's note and reviewed by myself. GENERAL: This is a 64-year-old female, uncomfortable appearing, holding her abdomen, well-developed well-nourished. SKIN: The skin was without rashes. EARS: External auditory canals clear, tympanic membranes pearly corrales without erythema or effusion bilaterally. EYES: Pupils equal round and reactive to light and accommodation. NOSE: Patent, turbinates without inflammation or discharge. MOUTH: Mucous membranes moist. Tonsils are not enlarged. Pharynx without erythema or exudate. NECK: Supple without nuchal rigidity. No lymphadenopathy. HEART: Regular rate and rhythm without murmurs gallops or rubs. LUNGS: Clear to auscultation bilaterally without wheezes, rales or rhonchi. No retractions or accessory muscle use. ABDOMEN: Hypoactive bowel sounds. Tenderness to palpation across lower abdomen. No guarding or rebound tenderness. NEURO: Patient was alert and oriented to person place and time. Course Reevaluation(s) Reevaluation #1: Patient was reevaluated and feels much better after receiving the Dilaudid and Zofran. She refuses NG tube at this time. Reevaluation #2: I was informed by nursing staff that patient had return of pain and vomiting. Additional medications were ordered. Patient was strongly encouraged to undergo NG tube placement at this time and was agreeable. NG tube placed by nursing staff. Consultations Consultation #1: [facility] hospitalist Consultation #2: Kyra Noel PA-C, general surgery Administered Medications Benzocaine (Benzocaine/Menthol 18 Jane/1 Box) 1 jane MT PRN PRN PRN Reason: SORE THROAT Stop: 08/20/20 18:27 Last Admin: 07/21/20 18:49 Dose: 1 jane Documented by: [id number] Famotidine 20 mg/ Syringe 5 mls @ 2.5 mls/min IV BID MAGNUS Stop: 08/18/20 10:59 Last Admin: 07/21/20 21:06 Dose: 2.5 mls/min Documented by: [id number] Admin: 07/21/20 08:10 Dose: 2.5 mls/min Documented by: [id number] Admin: 07/20/20 20:16 Dose: 2.5 mls/min Documented by: [id number] Admin: 07/20/20 09:49 Dose: Not Given Documented by: [id number] Admin: 07/19/20 21:30 Dose: Not Given Documented by: [id number] Admin: 07/19/20 13:41 Dose: 2.5 mls/min Documented by: [id number] Ciprofloxacin (Cipro / D5w) 400 mg in 200 mls @ 100 mls/hr IV Q12 MAGNUS; Protocol Stop: 07/29/20 11:14 Last Infusion: 07/21/20 23:09 Dose: 0 mls/hr Documented by: [id number] Admin: 07/21/20 21:06 Dose: 100 mls/hr Documented by: [id number] Infusion: 07/21/20 11:35 Dose: 0 mls/hr Documented by: [id number] Admin: 07/21/20 09:13 Dose: 100 mls/hr Documented by: [id number] Infusion: 07/20/20 22:37 Dose: 0 mls/hr Documented by: [id number] Admin: 07/20/20 20:17 Dose: 100 mls/hr Documented by: [id number] Infusion: 07/20/20 12:26 Dose: 0 mls/hr Documented by: [id number] Admin: 07/20/20 09:48 Dose: 100 mls/hr Documented by: [id number] Infusion: 07/19/20 23:19 Dose: 0 mls/hr Documented by: [id number] Admin: 07/19/20 21:19 Dose: 100 mls/hr Documented by: [id number] Infusion: 07/19/20 18:20 Dose: 0 mls/hr Documented by: [id number] Admin: 07/19/20 16:10 Dose: 100 mls/hr Documented by: [id number] Metronidazole (Flagyl) 500 mg in 100 mls @ 100 mls/hr IV Q8H MAGNUS; Protocol Stop: 07/29/20 10:59 Last Admin: 07/22/20 07:24 Dose: Not Given Documented by: [id number] Infusion: 07/22/20 00:08 Dose: 0 mls/hr Documented by: [id number] Admin: 07/21/20 23:06 Dose: 100 mls/hr Documented by: [id number] Infusion: 07/21/20 17:45 Dose: 0 mls/hr Documented by: [id number] Admin: 07/21/20 16:36 Dose: 100 mls/hr Documented by: [id number] Infusion: 07/21/20 09:13 Dose: 0 mls/hr Documented by: [id number] Admin: 07/21/20 08:09 Dose: 100 mls/hr Documented by: [id number] Infusion: 07/21/20 00:54 Dose: 0 mls/hr Documented by: [id number] Admin: 07/20/20 23:53 Dose: 100 mls/hr Documented by: [id number] Infusion: 07/20/20 18:47 Dose: 0 mls/hr Documented by: [id number] Admin: 07/20/20 17:41 Dose: 100 mls/hr Documented by: [id number] Infusion: 07/20/20 09:46 Dose: 0 mls/hr Documented by: [id number] Admin: 07/20/20 07:39 Dose: 100 mls/hr Documented by: [id number] Infusion: 07/20/20 00:16 Dose: 0 mls/hr Documented by: [id number] Admin: 07/19/20 23:16 Dose: 100 mls/hr Documented by: [id number] Infusion: 07/19/20 16:05 Dose: 0 mls/hr Documented by: [id number] Admin: 07/19/20 13:41 Dose: 100 mls/hr Documented by: [id number] Dextrose/Sodium Chloride (D5w And 1/2nss) 1,000 mls @ 125 mls/hr IV .Q8H MAGNUS Stop: 08/18/20 14:44 Last Admin: 07/22/20 04:23 Dose: 125 mls/hr Documented by: [id number] Infusion: 07/22/20 04:15 Dose: 125 mls/hr Documented by: [id number] Infusion: 07/22/20 00:08 Dose: 125 mls/hr Documented by: [id number] Infusion: 07/21/20 23:06 Dose: 0 mls/hr Documented by: [id number] Admin: 07/21/20 19:13 Dose: 125 mls/hr Documented by: [id number] Infusion: 07/21/20 19:13 Dose: 125 mls/hr Documented by: [id number] Infusion: 07/21/20 15:15 Dose: 125 mls/hr Documented by: [id number] Admin: 07/21/20 11:35 Dose: 125 mls/hr Documented by: [id number] Infusion: 07/21/20 11:35 Dose: 125 mls/hr Documented by: [id number] Admin: 07/21/20 04:34 Dose: 125 mls/hr Documented by: [id number] Infusion: 07/21/20 04:34 Dose: 125 mls/hr Documented by: [id number] Infusion: 07/21/20 00:54 Dose: 125 mls/hr Documented by: [id number] Admin: 07/20/20 23:53 Dose: Not Given Documented by: [id number] Infusion: 07/20/20 23:53 Dose: 0 mls/hr Documented by: [id number] Admin: 07/20/20 20:16 Dose: 125 mls/hr Documented by: [id number] Infusion: 07/20/20 20:16 Dose: 80 mls/hr Documented by: [id number] Infusion: 07/20/20 19:35 Dose: 80 mls/hr Documented by: [id number] Admin: 07/20/20 17:41 Dose: 80 mls/hr Documented by: [id number] Infusion: 07/20/20 17:41 Dose: 80 mls/hr Documented by: [id number] Admin: 07/20/20 05:22 Dose: 80 mls/hr Documented by: [id number] Infusion: 07/20/20 04:35 Dose: 80 mls/hr Documented by: [id number] Admin: 07/19/20 16:05 Dose: 80 mls/hr Documented by: [id number] Pantoprazole Sodium 40 mg/ (Syringe) 10 mls @ 5 mls/min IV BID MAGNUS Stop: 08/18/20 22:14 Last Admin: 07/21/20 21:06 Dose: 5 mls/min Documented by: [id number] Admin: 07/21/20 08:09 Dose: 5 mls/min Documented by: [id number] Admin: 07/20/20 20:16 Dose: 5 mls/min Documented by: [id number] Admin: 07/20/20 07:38 Dose: 5 mls/min Documented by: [id number] Admin: 07/19/20 23:15 Dose: 5 mls/min Documented by: [id number] Morphine Sulfate (Morphine Sulfate 4 Mg/Ml 1 Ml Carp\\Vial) 4 mg IV Q3H PRN PRN Reason: Pain Stop: 08/02/20 10:31 Last Admin: 07/19/20 16:08 Dose: 4 mg Documented by: [id number] Admin: 07/19/20 10:47 Dose: 4 mg Documented by: [id number] Ondansetron HCl (Ondansetron Inj 2 Mg/Ml 2 Ml Vial) 4 mg IV Q4H PRN PRN Reason: Nausea And Vomiting Stop: 08/18/20 10:31 Last Admin: 07/19/20 16:21 Dose: 4 mg Documented by: [id number] Discontinued Medications Hydromorphone HCl (Hydromorphone Inj 1 Mg/Ml Syringe) 1 mg IV NOW STA Stop: 07/19/20 05:13 Last Admin: 07/19/20 05:30 Dose: 1 mg Documented by: [id number] Hydromorphone HCl (Hydromorphone Inj 0.5 Mg/0.5 Ml Syr) 0.5 mg IV NOW STA Stop: 07/19/20 07:31 Last Admin: 07/19/20 07:44 Dose: 0.5 mg Documented by: [id number] Sodium Chloride (Nss 1000ml) 1,000 mls @ 999 mls/hr IV .Q1H1M MAGNUS Stop: 07/19/20 06:13 Last Infusion: 07/19/20 07:00 Dose: 0 mls/hr Documented by: [id number] Admin: 07/19/20 05:31 Dose: 999 mls/hr Documented by: [id number] Parenteral Electrolytes (Normosol-R) 1,000 mls @ 80 mls/hr IV .[id number] MAGNUS Stop: 08/18/20 10:31 Last Infusion: 07/19/20 19:05 Dose: 0 mls/hr Documented by: [id number] Infusion: 07/19/20 19:05 Dose: 0 mls/hr Documented by: [id number] Admin: 07/19/20 10:53 Dose: 80 mls/hr Documented by: [id number] Potassium Chloride (K Rangel / Wtr) 10 meq in 100 mls @ 100 mls/hr IV Q1H MAGNUS Stop: 07/21/20 10:29 Last Infusion: 07/21/20 15:45 Dose: 0 mls/hr Documented by: [id number] Admin: 07/21/20 13:25 Dose: 50 mls/hr Documented by: [id number] Infusion: 07/21/20 13:22 Dose: 50 mls/hr Documented by: [id number] Infusion: 07/21/20 11:36 Dose: 50 mls/hr Documented by: [id number] Admin: 07/21/20 11:29 Dose: 100 mls/hr Documented by: [id number] Ioversol (Ioversol 100ml) 100 ml IV ONCE ONE Stop: 07/19/20 06:16 Last Admin: 07/19/20 06:15 Dose: 93 ml Documented by: [id number] Lidocaine HCl (Lidocaine 2% Jelly 5 Ml Tube) Confirm Administered Dose 5 ml .ROUTE .[facility] Stop: 07/19/20 09:02 Last Admin: 07/19/20 10:54 Dose: Not Given Documented by: [id number] Ondansetron HCl (Ondansetron Inj 2 Mg/Ml 2 Ml Vial) 4 mg IV NOW STA Stop: 07/19/20 05:13 Last Admin: 07/19/20 05:31 Dose: 4 mg Documented by: [id number] Ondansetron HCl (Ondansetron Inj 2 Mg/Ml 2 Ml Vial) 4 mg IV NOW STA Stop: 07/19/20 07:31 Last Admin: 07/19/20 07:44 Dose: 4 mg Documented by: [id number] Medical Decision Making Differential Diagnosis Differential diagnosis includes appendicitis, diverticulitis, bowel obstruction, inflammatory bowel disease, renal colic, PUD, biliary pathology, pancreatitis, mesenteric ischemia, aortic pathology, infection, genitourinary, UTI, perforated viscus, among others. Home Medications Current Medication List: was personally reviewed by me Laboratory Data Attestation: I reviewed the patient's lab results. Result diagrams: 07/21/20 06:16 07/21/20 06:16 Lab Results 07/19/20 07/19/20 07/19/20 Range/Units 05:25 05:25 06:12 WBC 17.18 H (4.8-10.8) K/uL RBC 4.62 (4.2-5.4) M/uL Hgb 14.5 (12.0-16.0) g/dL Hct 42.2 (37-47) % MCV 91.3 (80-100) fL MCH 31.4 (25-34) pg MCHC 34.4 (32-36) g/dL RDW Std Deviation 42.8 (36.4-46.3) fL RDW Coeff of Rodrigo 12.9 (11.5-14.5) % Plt Count 248 (130-400) K/uL MPV 9.1 (7.4-10.4) fL Immature Gran % (Auto) 0.3 % Neut % (Auto) 84.9 % Lymph % (Auto) 8.1 % [place] % (Auto) 6.1 % Eos % (Auto) 0.4 % Baso % (Auto) 0.2 % Neut # (Auto) 14.57 H (1.4-6.5) K/uL Lymph # (Auto) 1.40 (1.2-3.4) K/uL [place] # (Auto) 1.05 H (0.11-0.59) K/uL Eos # (Auto) 0.07 (0-0.5) K/uL Baso # (Auto) 0.03 (0-0.2) K/uL Immature Gran # (Auto) 0.06 H (0.00-0.02) K/uL Sodium 140 (136-145) mmol/L Potassium 4.1 (3.5-5.1) mmol/L Chloride 106 (98-107) mmol/L Carbon Dioxide 26 (21-32) mmol/L Anion Gap 8.0 (3-11) BUN 13 (7-18) mg/dl Creatinine 1.17 (0.6-1.2) mg/dl Est Cr Clr Drug Dosing Not Reportable Est GFR ( Amer) 57.8 Est GFR (Non-Af Amer) 49.9 BUN/Creatinine Ratio 11.3 (10-20) Glucose 142 H (70-99) mg/dl Calcium 11.0 H (8.5-10.1) mg/dl Total Bilirubin 0.6 (0.2-1) mg/dl AST 26 (15-37) U/L ALT 41 (12-78) U/L Alkaline Phosphatase 100 (45-117) U/L Total Protein 8.2 (6.4-8.2) gm/dl Albumin 4.2 (3.4-5.0) gm/dl Globulin 4.0 (2.5-4.0) gm/dl Albumin/Globulin Ratio 1.1 (0.9-2) Lipase 147 (73-393) U/L COVID-19 Eval [facility] SARS-CoV-2, RNA, NAAT (NEGATIVE) 07/19/20 Range/Units 06:12 WBC (4.8-10.8) K/uL RBC (4.2-5.4) M/uL Hgb (12.0-16.0) g/dL Hct (37-47) % MCV (80-100) fL MCH (25-34) pg MCHC (32-36) g/dL RDW Std Deviation (36.4-46.3) fL RDW Coeff of Rodrigo (11.5-14.5) % Plt Count (130-400) K/uL MPV (7.4-10.4) fL Immature Gran % (Auto) % Neut % (Auto) % Lymph % (Auto) % [place] % (Auto) % Eos % (Auto) % Baso % (Auto) % Neut # (Auto) (1.4-6.5) K/uL Lymph # (Auto) (1.2-3.4) K/uL [place] # (Auto) (0.11-0.59) K/uL Eos # (Auto) (0-0.5) K/uL Baso # (Auto) (0-0.2) K/uL Immature Gran # (Auto) (0.00-0.02) K/uL Sodium (136-145) mmol/L Potassium (3.5-5.1) mmol/L Chloride (98-107) mmol/L Carbon Dioxide (21-32) mmol/L Anion Gap (3-11) BUN (7-18) mg/dl Creatinine (0.6-1.2) mg/dl Est Cr Clr Drug Dosing Est GFR ( Amer) Est GFR (Non-Af Amer) BUN/Creatinine Ratio (10-20) Glucose (70-99) mg/dl Calcium (8.5-10.1) mg/dl Total Bilirubin (0.2-1) mg/dl AST (15-37) U/L ALT (12-78) U/L Alkaline Phosphatase (45-117) U/L Total Protein (6.4-8.2) gm/dl Albumin (3.4-5.0) gm/dl Globulin (2.5-4.0) gm/dl Albumin/Globulin Ratio (0.9-2) Lipase (73-393) U/L COVID-19 Eval Order SARS-CoV-2, RNA, NAAT NEGATIVE (NEGATIVE) Imaging Data Attestation: I personally reviewed and interpreted this imaging study as follows: Radiologist's Impression: CT ABDOMEN & PELVIS With Contrast: Direct comparison is made with the prior study of April 29, 2020. The liver, spleen, and pancreas appear normal. There is some intrahepatic and extrahepatic bile duct distention. Gallbladder is surgically absent. Stomach appears normal. Segments of small bowel are distended and contain dynamic fluid levels. There are surgical changes in the right lower quadrant suggesting a partial bowel resection Adrenals kidneys and bladder appear normal. Vascular structures appear normal. There is no free peritoneal air. There are surgical changes of total left hip replacement. Impression: Small bowel obstruction likely related to surgical anastomosis in the right lower quadrant. Radiologist: Ahsan Shafer MD MDM Narrative Continuous telemetry monitor: Order was placed for continuous telemetry monitor. Patient was placed on the telemetry monitor. Patient was noted to be in normal sinus rhythm at an initial rate of 72 bpm. The patient is a 64-year-old female who presents today complaining of abdominal pain and vomiting. Labs revealed a leukocytosis of 17,000, no anemia or concerning electrolyte abnormalities. Creatinine within normal limits. Patient treated with IV fluids, Dilaudid, Zofran. She has a long history of bowel obstructions. CT showed a small bowel obstruction with transition point in the right lower quadrant. Patient initially refused NG tube, however after return of vomiting was strongly encouraged to have this placed and agreed. [facility] Hospitalist service was consulted and agreed to evaluate patient for admission. General surgery service was called and will consult on the patient. Impression & Plan Small bowel obstruction Discharge Plan Visit Data Chief Complaint: GI Assessment Stated Complaint: bowl blockage ED Provider: Toney Mckeon ED Midlevel Provider: Ana Glaser Discharge Problem: Small bowel obstruction Patient Disposition: Admitted As Inpatient Discharge Instructions Interventions: ED Discharge Assessment Last Done: 07/19/20 09:38
[2020-07-19 05:31] LABS: Basophils # (auto) 0.03 K/uL (0-0.2); Basophils % (auto) 0.2 %; Eosinophils # (auto) 0.07 K/uL (0-0.5); Eosinophils % (auto) 0.4 %; Hematocrit (blood only) 42.2 % (37-47); Hemoglobin 14.5 g/dL (12.0-16.0); Immature Granulocytes # (auto) 0.06 K/uL (0.00-0.02); Immature Granulocytes % (auto) 0.3 %; Lymphocytes % (auto) 8.1 %; Mean Corpuscular Hemoglobin 31.4 pg (25-34); Mean Corpuscular Hgb Conc 34.4 g/dL (32-36); Mean Corpuscular Volume 91.3 fL (80-100); Mean Platelet Volume 9.1 fL (7.4-10.4); Monocytes # (auto) 1.05 K/uL (0.11-0.59); Monocytes % (auto) 6.1 %; Neutrophils # (auto) 14.57 K/uL (1.4-6.5); Neutrophils % (auto) 84.9 %; Platelet Count 248 K/uL (130-400); RDW Coefficient of Variation 12.9 % (11.5-14.5); RDW Standard Deviation 42.8 fL (36.4-46.3); Red Blood Count 4.62 M/uL (4.2-5.4); White Blood Count 17.18 K/uL (4.8-10.8)
[2020-07-19 05:51] LABS: Alanine Aminotransferase 41 U/L (12-78); Albumin Level 4.2 gm/dl (3.4-5.0); Aspartate Aminotransferase 26 U/L (15-37); BUN Creatinine Ratio 11.3 (10-20); Blood Urea Nitrogen 13 mg/dl (7-18); Carbon Dioxide 26 mmol/L (21-32); Chloride 106 mmol/L (98-107); Est GFR (African American) 57.8; Est GFR (Non-African American) 49.9; Glucose 142 mg/dl (70-99); Lipase 147 U/L (73-393); Potassium 4.1 mmol/L (3.5-5.1); Sodium 140 mmol/L (136-145)
[2020-07-19 05:54] LABS: Albumin Globulin Ratio 1.1 (0.9-2); Alkaline Phosphatase 100 U/L (45-117); Bilirubin,Total 0.6 mg/dl (0.2-1); Total Protein 8.2 gm/dl (6.4-8.2)
[2020-07-19] MEDS ORDERED: IOVERSOL 100ml IV ONE (06:15)
--- NOTE | 2020-07-19 07:13 | CT Scan Report ---
CT OF THE ABDOMEN AND PELVIS WITH CONTRAST CLINICAL HISTORY: Abdominal pain. Small bowel obstruction and appendiceal carcinoma. COMPARISON STUDY: CT of the abdomen and pelvis April 30, 2020. TECHNIQUE: Following IV administration of 93 mL of Optiray-320, axial images of the abdomen and pelvi s were obtained from the lung bases to the proximal femurs. Images were reviewed in the axial, sagitt al, and coronal planes. IV contrast was administered without complication. Automated exposure contro l was utilized for the study. A dose lowering technique was utilized adhering to the principles of A JASMINA. CT DOSE: 406.61 mGy.cm FINDINGS: 4 mm subpleural right lower lobe nodule is unchanged from earlier exams. This is benign giv en stability. No pneumatosis, free air or portal venous gas is present. Biliary ductal dilatation is unchanged and likely related to cholecystectomy. There are no hepatic lesions. The spleen, adrenal gl ands, kidneys and pancreas are normal. There is no peripancreatic infiltration. No hydronephrosis is present. Major vasculature is patent. Several bowel anastomoses are noted the small bowel is moderate ly dilated and fluid-filled. Dilatation has increased since CT of April 30, 2020. Transition point within the central pelvis on image 307 of [id number] is noted. Distal small bowel is decompressed. There is no ascites. There is minimal mesenteric infiltration. Evaluation for peritoneal disease is difficult given lack of contrast. Apparent soft tissue within the anterior aspect of the abdomen likely reflec ts decompressed small bowel loops. There is no abscess. Left hip arthroplasty is noted. No suspicious osseous lesions are noted. IMPRESSION: Moderately dilated fluid-filled small bowel with transition point within the pelvis. Sma ll bowel dilatation has increased since CT of April 30, 2020 and is consistent with a small bowel obstruction. ACT 112: Negative or not required by law. Electronically signed by: Justin Isaac M.D. 07/19/2020 7:12 AM
[2020-07-19] MEDS ORDERED: HYDROmorphone INJ 0.5 MG/0.5 ML SYR IV STA (07:30)
--- NOTE | 2020-07-19 08:56 | Surgery Consultation ---
Date of Consultation July 19, 2020 Assessment & Plan (1) Small bowel obstruction: 64 year-old female with history of appendiceal adenocarcinoma s/p resection and chemotherapy (at least one treatment of intraperitoneal chemotherapy), small bowel resection in 2003, cholecystectomy and oophorectomy with multiple episodes of recurrent SBO's presented to ED with lower abdominal pain and nausea and vomiting. CT scan consistent with SBO with transition zone in lower pelvis similar to prior CT scans dating back to 2016. Leukocytosis of 17K. Plan: No acute surgical indication at this time. Given extensive surgical history, history of intraperitoneal chemotherapy, and likely extensive intra-abdominal adhesions would want to avoid surgical intervention unless absolutely indicated Conservative measures: NPO (okay to have mouth swabs), IV fluids, IV pain management (try to limit narcotics), IV zofran prn nausea, low threshold for NGT if persistent nausea or any vomiting, and ambulation encouraged. Will continue to follow. Discussed with Dr. Pop who is to evaluate patient later today. DR. Pop, I reviewed pt's H/P, labs, CT scan with pt, I agree with conservative treatment now, pt may needs surgery if pt's symptoms are worse, other option transfer pt to 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 Had bowel movement at 2 am but no flatus since. She states she has had multiple SBO in past with last episode in April 2020. She states she has had a history of 12 SBO's in matter of 12 months in the past. Usually resolve on their own. Has not required an NGT recently. Also has a history of ch olecystectomy laparoscopically and open oophorectomy due to extensive endometriosis. These two surgeries were prior to her appendiceal carcinoma treatments. Since being in ED she is feeling better due to the IV dilaudid but still occasional nausea. No vomiting. Still abdominal pain in the RLQ. ER work-up included labs which showed leukocytosis of 17K. CT scan of abdomen and pelvis with IV Contrast showing transition point in the lower pelvis with dilated proximal small bowel similar to CT scan in Apr 2020 however small bowel slightly larger. Allergies Allergy/AdvReac Type Severity Reaction Status Date / Time barium sulfate Allergy Severe "SEVERELY Verified 07/19/20 05:51 ILL", GI promethazine Allergy Mild INTOLERANCE, Verified 07/19/20 05:51 DIZZY meperidine Allergy Unknown BRUISING Verified 07/19/20 05:51 AND SEVERE BURNING IN IV FORM morphine AdvReac Intermediate Anxiety Verified 07/19/20 05:51 adhesive AdvReac Unknown RASH Verified 07/19/20 05:51 Home Medications Medication Instructions Recorded Confirmed Type pantoprazole [Protonix] 40 mg PO QPM 03/04/18 07/19/20 History potassium chloride 10 meq PO QAM 03/04/18 07/19/20 History calcium carbonate [Calcium 600] 1,200 mg PO DAILY 08/22/19 07/19/20 History cholecalciferol (vitamin D3) 125 mcg PO DAILY 08/22/19 07/19/20 History [Vitamin D3] cyanocobalamin (vitamin B-12) 1,000 mcg SUBLINGUAL 3XWK 08/22/19 07/19/20 History ferrous sulfate 325 mg PO 4XWK 08/22/19 07/19/20 History multivitamin with minerals 1 tab PO DAILY 08/22/19 07/19/20 History [Multiple Vitamin-Minerals] vitamin E 400 unit PO DAILY 08/22/19 07/19/20 History docusate sodium [Colace] 100 mg PO BID #1 cap 08/23/19 07/19/20 Rx bisacodyl 5 mg tablet,delayed 5 mg PO DIRECTED 09/21/19 07/19/20 History release lutein 6 mg tablet 6 mg PO DAILY 09/21/19 07/19/20 History conjugated estrogens 0.625 mg/gram 0.625 mg PV 2XWK #30 gm 02/29/20 07/19/20 Rx vaginal cream thyroid (pork) [[place] Thyroid] 90 mg PO DAILY 07/19/20 07/19/20 History Patient History Medical History Adenocarcinoma of appendix Atrophic vulvovaginitis Hypothyroidism Osteopenia Small bowel obstruction Surgical History H/O ovarian cystectomy History of appendectomy 2001, cancer History of cholecystectomy History of decompression of median nerve At Carpal Tunnel History of hysterectomy With removal of both ovaries, 2001, first surgery, resection of part of large bowel. History of resection of small bowel 2003 S/P hip replacement S/P tonsillectomy Family History Mother Arthritis Father Arthritis Grandmother (Maternal) FH: kidney cancer Other Osteoporosis Denies family history of Ovarian cancer Breast cancer Colorectal cancer Social History Smoking Status: Never smoker Second Hand Exposure: No; Hx Alcohol Use: Yes Alcohol type: beer and wine Hx Substance Use: No Preferred Language: Maori Communication Ability: Effective Grain Shoveler Required: No Beliefs That Will Affect Care: None marital status: Current Living Situation: Spouse Other Information That Helps Us Care for You: No Feels Safe at Home: Yes Assistive Devices: Glasses Review of Systems Review of Systems: All systems reviewed & are unremarkable except as noted in HPI & below Physical Exam Constitutional: well developed and well nourished; no acute distress, not ill appearing and not in distress Looks tired and uncomfortable but no acute distress Respiratory: normal respiratory effort; no respiratory distress and no labored breathing Gastrointestinal (Abdomen): Inspection/Auscultation: abdomen normal to insp ection and + abdominal surgical scar (midline laparotomy scar present); abdomen not distended, + abnormal bowel sounds, no high-pitched sounds and no hy peractive bowel sounds Percussion/Palpation: + abdomen tender (RLQ) and abdomen soft; no guarding and abdomen not rigid Skin: no rashes, warm and dry Results & Data ([facility]) Vital Signs (Past 12 Hours) Vital Signs Temp Pulse Pulse Resp BP BP Pulse Ox 07/19/20 07:45 74 16 112/73 99 07/19/20 06:30 76 18 133/88 98 07/19/20 06:11 75 18 132/84 100 07/19/20 05:36 65 16 122/70 100 07/19/20 05:25 100 07/19/20 05:01 36.9 C 72 22 113/76 100 Laboratory Results 07/19/20 07/19/20 07/19/20 Range/Units 06:12 06:12 05:25 WBC (4.8-10.8) K/uL RBC (4.2-5.4) M/uL Hgb (12.0-16.0) g/dL Hct (37-47) % MCV (80-100) fL MCH (25-34) pg MCHC (32-36) g/dL RDW Std Deviation (36.4-46.3) fL RDW Coeff of Rodrigo (11.5-14.5) % Plt Count (130-400) K/uL MPV (7.4-10.4) fL Immature Gran % (Auto) % Neut % (Auto) % Lymph % (Auto) % Aiken % (Auto) % Eos % (Auto) % Baso % (Auto) % Neut # (Auto) (1.4-6.5) K/uL Lymph # (Auto) (1.2-3.4) K/uL Aiken # (Auto) (0.11-0.59) K/uL Eos # (Auto) (0-0.5) K/uL Baso # (Auto) (0-0.2) K/uL Immature Gran # (Auto) (0.00-0.02) K/uL Sodium 140 (136-145) mmol/L Potassium 4.1 (3.5-5.1) mmol/L Chloride 106 (98-107) mmol/L Carbon Dioxide 26 (21-32) mmol/L Anion Gap 8.0 (3-11) BUN 13 (7-18) mg/dl Creatinine 1.17 (0.6-1.2) mg/dl Est Cr Clr Drug Dosing Not Reportable Est GFR ( Amer) 57.8 Est GFR (Non-Af Amer) 49.9 BUN/Creatinine Ratio 11.3 (10-20) Glucose 142 H (70-99) mg/dl Calcium 11.0 H (8.5-10.1) mg/dl Total Bilirubin 0.6 (0.2-1) mg/dl AST 26 (15-37) U/L ALT 41 (12-78) U/L Alkaline Phosphatase 100 (45-117) U/L Total Protein 8.2 (6.4-8.2) gm/dl Albumin 4.2 (3.4-5.0) gm/dl Globulin 4.0 (2.5-4.0) gm/dl Albumin/Globulin Ratio 1.1 (0.9-2) Lipase 147 (73-393) U/L COVID-19 Eval [facility] SARS-CoV-2, RNA, NAAT NEGATIVE (NEGATIVE) 07/19/20 Range/Units 05:25 WBC 17.18 H (4.8-10.8) K/uL RBC 4.62 (4.2-5.4) M/uL Hgb 14.5 (12.0-16.0) g/dL Hct 42.2 (37-47) % MCV 91.3 (80-100) fL MCH 31.4 (25-34) pg MCHC 34.4 (32-36) g/dL RDW Std Deviation 42.8 (36.4-46.3) fL RDW Coeff of Rodrigo 12.9 (11.5-14.5) % Plt Count 248 (130-400) K/uL MPV 9.1 (7.4-10.4) fL Immature Gran % (Auto) 0.3 % Neut % (Auto) 84.9 % Lymph % (Auto) 8.1 % Aiken % (Auto) 6.1 % Eos % (Auto) 0.4 % Baso % (Auto) 0.2 % Neut # (Auto) 14.57 H (1.4-6.5) K/uL Lymph # (Auto) 1.40 (1.2-3.4) K/uL Aiken # (Auto) 1.05 H (0.11-0.59) K/uL Eos # (Auto) 0.07 (0-0.5) K/uL Baso # (Auto) 0.03 (0-0.2) K/uL Immature Gran # (Auto) 0.06 H (0.00-0.02) K/uL Sodium (136-145) mmol/L Potassium (3.5-5.1) mmol/L Chloride (98-107) mmol/L Carbon Dioxide (21-32) mmol/L Anion Gap (3-11) BUN (7-18) mg/dl Creatinine (0.6-1.2) mg/dl Est Cr Clr Drug Dosing Est GFR ( Amer) Est GFR (Non-Af Amer) BUN/Creatinine Ratio (10-20) Glucose (70-99) mg/dl Calcium (8.5-10.1) mg/dl Total Bilirubin (0.2-1) mg/dl AST (15-37) U/L ALT (12-78) U/L Alkaline Phosphatase (45-117) U/L Total Protein (6.4-8.2) gm/dl Albumin (3.4-5.0) gm/dl Globulin (2.5-4.0) gm/dl Albumin/Globulin Ratio (0.9-2) Lipase (73-393) U/L COVID-19 Eval Order SARS-CoV-2, RNA, NAAT (NEGATIVE) Diagnostic Findings CT scan of abdomen and pelvis with IV Contrast FINDINGS: 4 mm subpleural right lower lobe nodule is unchanged from earlier exams. This is benign given stability. No pneumatosis, free air or portal venous gas is present. Biliary ductal dilatation is unchanged and likely related to cholecystectomy. There are no hepatic lesions. The spleen, adrenal glands, kidneys and pancreas are normal. There is no peripancreatic infiltration. No hydronephrosis is present. Major vasculature is patent. Several bowel anastomoses are noted the small bowel is moderately dilated and fluid-filled. Dilatation has increased since CT of April 30, 2020. Transition point within the central pelvis on image 307 of 461 is noted. Distal small bowel is decompressed. There is no ascites. There is minimal mesenteric infiltration. Evaluation for peritoneal disease is difficult given lack of contrast. Apparent soft tissue within the anterior aspect of the abdomen likely reflects decompressed small bowel loops. There is no abscess. Left hip arthroplasty is noted. No suspicious osseous lesions are noted. IMPRESSION: Moderately dilated fluid-filled small bowel with transition point within the pelvis. Small bowel dilatation has increased since CT of April 30, 2020 and is consistent with a small bowel obstruction.
[2020-07-19] MEDS ORDERED: LIDOCAINE 2% JELLY 5 ML TUBE ONE (09:01)
[2020-07-19] MEDS ORDERED: ONDANSETRON INJ 2 MG/ML 2 ML VIAL IV PRN (10:32)
[2020-07-19] MEDS ORDERED: ACETAMINOPHEN 1000 MG/100 ML IV IV PRN (10:32)
[2020-07-19] MEDS ORDERED: NORMOSOL-R 1,000 ML IV SCH (10:32)
[2020-07-19] MEDS: MoRPHine SULFATE 4 MG/ML 1 ML CARP\\VIAL IV PRN ×2 (10:47→16:08)
--- NOTE | 2020-07-19 13:36 | Electrocardiogram Report ---
Test Reason : Blood Pressure : / mmHG Vent. Rate : 075 BPM Atrial Rate : 075 BPM P-R Int : 170 ms QRS Dur : 076 ms QT Int : 392 ms P-R-T Axes : 056 014 065 degrees QTc Int : 437 ms Normal sinus rhythm Normal ECG When compared with ECG of 22-AUG-2019 02:55, No significant change was found Confirmed by Broderick Simeon ([id number]) on 07/19/2020 1:35:31 PM Referred By: REFERRED SELF Confirmed By:Broderick Simeon
[2020-07-19] MEDS: metroNIDAZOLE 500 MG/100 ML BAG IV SCH ×2 (13:41→23:16)
[2020-07-19] MEDS: FAMOTIDINE 20 MG in SYRINGE 3 ML IV SCH ×3 (13:41→21:30)
--- NOTE | 2020-07-19 14:32 | History & Physical Report ---
Date of Service July 19, 2020 Assessment & Plan (1) Small bowel obstruction: CT a/p on 07/19 showed "Moderately dilated fluid-filled small bowel with transition point within the pelvis." - NPO - IV fluids - Pain control - General surgery following - Conservative measures for now. Presently holding NG tube per patient wishes, but I did discuss with her that it could improve her abdominal pain. (2) Hypothyroidism: Only uses a pork thyroid product. TSH was 9.0 in 2019. - Check TSH in the AM (3) DVT prophylaxis: Heparin 5000 units Q12h Admission and Anticipated Discharge Date Admission Date: July 19, 2020 History of Present Illness Primary Care Provider: Toney Villasenor 64yo F w/ hx of adenocarcinoma of appendix who presents with recurrent SBO. Her original surgery was in the early . She underwent chemo at that time and had a second surgery ~2002. Her first SBO was in 2003 and required surgery again. The original surgery was in [place], then the next two were in [place], [place]. No surgeries since that time. She has had multiple SBOs in the past, most recently in 04/2018, but has not needed any surgery. She reports her pain began around 8-9pm with about 5 episodes of vomiting. The vomit was not bloody and just her food. She took an unknown pain medication which she says she had at home. This did not help her pain, and she presented to the ED where she received IV hydromorphone and Zofran with some relief. An NG tube was suggested, but she declined at this time. Allergies Allergy/AdvReac Type Severity Reaction Status Date / Time barium sulfate Allergy Severe "SEVERELY Verified 07/19/20 05:51 ILL", GI promethazine Allergy Mild INTOLERANCE, Verified 07/19/20 05:51 DIZZY meperidine Allergy Unknown BRUISING Verified 07/19/20 05:51 AND SEVERE BURNING IN IV FORM morphine AdvReac Intermediate Anxiety Verified 07/19/20 05:51 adhesive AdvReac Unknown RASH Verified 07/19/20 05:51 Home Medications Medication Instructions Recorded Confirmed Type pantoprazole [Protonix] 40 mg PO QPM 03/04/18 07/19/20 History potassium chloride 10 meq PO QAM 03/04/18 07/19/20 History calcium carbonate [Calcium 600] 1,200 mg PO DAILY 08/22/19 07/19/20 History cholecalciferol (vitamin D3) 125 mcg PO DAILY 08/22/19 07/19/20 History [Vitamin D3] cyanocobalamin (vitamin B-12) 1,000 mcg SUBLINGUAL 3XWK 08/22/19 07/19/20 History ferrous sulfate 325 mg PO 4XWK 08/22/19 07/19/20 History multivitamin with minerals 1 tab PO DAILY 08/22/19 07/19/20 History [Multiple Vitamin-Minerals] vitamin E 400 unit PO DAILY 08/22/19 07/19/20 History docusate sodium [Colace] 100 mg PO BID #1 cap 08/23/19 07/19/20 Rx bisacodyl 5 mg tablet,delayed 5 mg PO DIRECTED 09/21/19 07/19/20 History release lutein 6 mg tablet 6 mg PO DAILY 09/21/19 07/19/20 History conjugated estrogens 0.625 mg/gram 0.625 mg PV 2XWK #30 gm 02/29/20 07/19/20 Rx vaginal cream thyroid (pork) [[place] Thyroid] 90 mg PO DAILY 07/19/20 07/19/20 History Past Med/Surg History Medical History Adenocarcinoma of appendix Atrophic vulvovaginitis Hypothyroidism Osteopenia Small bowel obstruction Surgical History H/O ovarian cystectomy History of appendectomy 2001, cancer History of cholecystectomy History of decompression of median nerve At Carpal Tunnel History of hysterectomy With removal of both ovaries, 2001, first surgery, resection of part of large bowel. History of resection of small bowel 2003 S/P hip replacement S/P tonsillectomy Family History Mother Arthritis Father Arthritis Grandmother (Maternal) FH: kidney cancer Other Osteoporosis Denies family history of Ovarian cancer Breast cancer Colorectal cancer Social History Smoking Status: Never smoker Second Hand Exposure: No; Hx Alcohol Use: Yes Alcohol type: beer and wine Hx Substance Use: No Preferred Language: Lao Communication Ability: Effective Tso Required: No Beliefs That Will Affect Care: None marital status: Current Living Situation: Spouse Other Information That Helps Us Care for You: No Feels Safe at Home: Yes Assistive Devices: Glasses Review of Systems Review of Systems: All systems reviewed & are unremarkable except as noted in HPI & below Physical Exam Constitutional: WD/WN, vitals as above + acute distress Eyes: EOM intact bilaterally; no conjunctival abnormality ENMT: external ear and nose normal, oropharynx normal Neck: trachea midline, no thyromegaly normal visual inspection Respiratory: normal respiratory effort, lungs clear to auscultation no respiratory distress Cardiovascular: RRR, no murmur, no edema Gastrointestinal (Abdomen): Inspection/Auscultation: abdomen normal to inspection and + hypoactive bowel sounds; abdomen not distended Percussion/Palpation: + abdomen tender (Diffuse) and abdomen soft; no guarding and abdomen not rigid Musculoskeletal: no cyanosis or clubbing, extremities motor strength 5/5 Skin: no rashes, warm and dry Neurologic: moves all extremities and awake Psychiatric: Orientation: oriented x 3 and cooperative Results & Data Results & Data ([facility]) Vital Signs (Past 12 Hours) Vital Signs Temp Pulse Pulse Pulse Resp BP BP 07/19/20 09:57 36.8 C 76 16 124/79 07/19/20 09:38 75 16 118/81 07/19/20 09:01 65 0 L 07/19/20 09:00 72 15 126/77 07/19/20 08:31 71 18 07/19/20 08:30 72 22 114/76 07/19/20 08:01 72 13 07/19/20 08:00 71 21 108/70 07/19/20 07:45 74 16 07/19/20 07:31 75 27 H 07/19/20 07:30 72 20 112/73 07/19/20 07:01 72 15 07/19/20 07:00 70 19 117/74 07/19/20 06:30 76 18 133/88 07/19/20 06:11 75 18 132/84 07/19/20 05:36 65 16 122/70 07/19/20 05:25 07/19/20 05:01 36.9 C 72 22 113/76 BP Pulse Ox 07/19/20 09:57 98 07/19/20 09:38 07/19/20 09:01 100 02/05/21 09:00 100 07/19/20 08:31 100 07/19/20 08:30 100 07/19/20 08:01 100 07/19/20 08:00 100 07/19/20 07:45 112/73 99 07/19/20 07:31 93 07/19/20 07:30 93 07/19/20 07:01 97 07/19/20 07:00 96 07/19/20 06:30 98 07/19/20 06:11 100 07/19/20 05:36 100 07/19/20 05:25 100 07/19/20 05:01 100 Code Status & VTE Plan VTE Prophylaxis Plan VTE Prophylaxis will be ordered: Yes PG Care Time/CCT Total # of Minutes Spent Total Time Spent with Patient: Total time spent is greater than 50% in home health outreach coordinator rdination of care (as documented) at patient's floor/unit and/or counseling patient: Coding Level of Care Code 53672 Initial Inpt Care Lvl 3 Diagnoses Small bowel obstruction K56.609 Hypothyroidism E03.9 Hypothyroidism type: unspecified DVT prophylaxis Z29.9 (1) Hypothyroidism Hypothyroidism type: unspecified Qualified Code(s): E03.9 - Hypothyroidism, unspecified
[2020-07-19] MEDS: D5W AND 1/2NSS 1,000 ML IV SCH (16:05)
[2020-07-19] MEDS: CIPROFLOXACIN / D5W 400 MG/200 ML BAG IV SCH ×2 (16:10→21:19)
[2020-07-19] MEDS ORDERED: Nursing to Pharmacy Communication SCH (22:45)
[2020-07-19] MEDS: PANTOprazole 40 MG in SYRINGE 0 ML IV SCH (23:15)
[2020-07-20] MEDS: D5W AND 1/2NSS 1,000 ML IV SCH ×4 (05:22→23:53)
[2020-07-20 05:57] LABS: Hematocrit (blood only) 33.5 % (37-47); Mean Corpuscular Hemoglobin 30.8 pg (25-34); Mean Corpuscular Hgb Conc 32.8 g/dL (32-36); Mean Corpuscular Volume 93.8 fL (80-100); Mean Platelet Volume 8.8 fL (7.4-10.4); Platelet Count 212 K/uL (130-400); RDW Coefficient of Variation 13.4 % (11.5-14.5); Red Blood Count 3.57 M/uL (4.2-5.4)
[2020-07-20 06:09] LABS: BUN Creatinine Ratio 13.6 (10-20); Calcium 8.3 mg/dl (8.5-10.1); Creatinine Clr Calc Pharmacy 64.7 ml/min; Est GFR (African American) 78.4; Est GFR (Non-African American) 67.6; Magnesium 2.3 mg/dl (1.8-2.4); Potassium 3.9 mmol/L (3.5-5.1)
[2020-07-20 06:18] LABS: Thyroid Stimulating Hormone 0.596 uIu/ml (0.300-4.500)
[2020-07-20] MEDS: PANTOprazole 40 MG in SYRINGE 0 ML IV SCH ×2 (07:38→20:16)
[2020-07-20] MEDS: metroNIDAZOLE 500 MG/100 ML BAG IV SCH ×3 (07:39→23:53)
[2020-07-20] MEDS: CIPROFLOXACIN / D5W 400 MG/200 ML BAG IV SCH ×2 (09:48→20:17)
[2020-07-20] MEDS: FAMOTIDINE 20 MG in SYRINGE 3 ML IV SCH ×2 (09:49→20:16)
--- NOTE | 2020-07-20 21:48 | Hospitalist Progress Note ---
Date of Service July 20, 2020 Assessment & Plan (1) Small bowel obstruction: CT a/p on 07/19 showed "Moderately dilated fluid-filled small bowel with transition point within the pelvis." - NPO - IV fluids - Pain control - General surgery following - Conservative measures for now. Continue with NG tube and try to limit opiates. will continue to monitor. (2) Hypothyroidism: Only uses a pork thyroid product. TSH was 9.0 in 2019. - Check TSH in the AM (3) DVT prophylaxis: Heparin 5000 units Q12h Admission and Anticipated Discharge Date Admission Date: July 19, 2020 Subjective Patient reports feeling well and tolerating the NG tube. Patient denies any nausea or vomiting. Review of Systems Review of Systems: All systems reviewed & are unremarkable except as noted in HPI & below Physical Exam Physical Exam: Constitutional: WD/WN, vitals as above in no distress Eyes: EOM intact bilaterally; no conjunctival abnormality ENMT: external ear and nose normal, oropharynx normal Neck: trachea midline, no thyromegaly normal visual inspection Respiratory: normal respiratory effort, lungs clear to auscultation no respiratory distress Cardiovascular: RRR, no murmur, no edema Gastrointestinal (Abdomen): Inspection/Auscultation: abdomen normal to inspection and + hypoactive bowel sounds; abdomen not distended Percussion/Palpation: + decreased tenderness and abdomen soft; no guarding and abdomen not rigid Musculoskeletal: no cyanosis or clubbing, extremities motor strength 5/5 Skin: no rashes, warm and dry Neurologic: moves all extremities and awake Psychiatric: Orientation: oriented x 3 and cooperative Results & Data Results & Data ([facility]) Vital Signs (Past 12 Hours) Vital Signs Temp Pulse Resp BP Pulse Ox 07/20/20 16:00 37.4 C 78 18 98/63 L 99 PG Care Time/CCT Total # of Minutes Spent Total Time Spent with Patient: Total time spent is greater than 50% in coordination of care (as documented) at patient's floor/unit and/or counseling patient: Coding Level of Care Code 60447 Subseq Hosp Care Lvl 3 Diagnoses Small bowel obstruction K56.609 Hypothyroidism E03.9 Hypothyroidism type: unspecified DVT prophylaxis Z29.9 Time Spent (min) 35 (1) Hypothyroidism Hypothyroidism type: unspecified Qualified Code(s): E03.9 - Hypothyroidism, unspecified
[2020-07-20 23:11] LABS: Hematocrit (blood only) 30.9 % (37-47); Hemoglobin 10.2 g/dL (12.0-16.0)
--- NOTE | 2020-07-20 23:15 | Communication Note ---
Date of Service: July 20, 2020 Called by nursing to make aware of dark brown drainage from NG tube into collection receptacle. Patient currently admitted for SBO with conservative tx w ith NPO, IVF, NGT. Noted on labwork to have Hgb drop from 14.5 -> 11.0 over 24 hours (labwork last performed this morning). Repeat H/H ordered which shows Hgb 10.2, performed at 2300 today. Patient is already on Protonix 40mg IV BID, Pepcid 20mg IV BID. Patient is asymptomatic without chest pain, SOB, dizziness. Does endorse fatigue but states she is "always tired". Vitals stable, however last 3 BP readings with mildly low systolic to high 90s (baseline appears to be 100-120 systolic per chart review). Patient has been on IVF since admission, however was at a rate of 80cc/hr until increased this evening due to complaints of decreased UOP and dry appearance on exam (cracked lips, tacky mucous membranes). Possible element of dilutional decrease in Hgb given decrease in all cell lines on labwork this morning, however given ? NGT drainage consistent with blood vs. biliary will again repeat CBC with AM labs. No urgent interventions at this time. Patient's presentation discussed with Dr. Siddiqui. Resident Activity Tracking Resident Involvement: Resident Care Provided Care Provided: Adult Hospital Medicine
[2020-07-21] MEDS: D5W AND 1/2NSS 1,000 ML IV SCH ×3 (04:34→19:13)
[2020-07-21 06:37] LABS: Basophils # (auto) 0.03 K/uL (0-0.2); Basophils % (auto) 0.4 %; Eosinophils # (auto) 0.31 K/uL (0-0.5); Eosinophils % (auto) 4.3 %; Hematocrit (blood only) 30.4 % (37-47); Hemoglobin 10.1 g/dL (12.0-16.0); Immature Granulocytes # (auto) 0.01 K/uL (0.00-0.02); Immature Granulocytes % (auto) 0.1 %; Lymphocytes # (auto) 1.51 K/uL (1.2-3.4); Lymphocytes % (auto) 20.7 %; Mean Corpuscular Hemoglobin 31.2 pg (25-34); Mean Corpuscular Hgb Conc 33.2 g/dL (32-36); Mean Corpuscular Volume 93.8 fL (80-100); Mean Platelet Volume 8.9 fL (7.4-10.4); Monocytes # (auto) 0.91 K/uL (0.11-0.59); Monocytes % (auto) 12.5 %; Neutrophils # (auto) 4.51 K/uL (1.4-6.5); Platelet Count 194 K/uL (130-400); RDW Coefficient of Variation 12.7 % (11.5-14.5); RDW Standard Deviation 43.8 fL (36.4-46.3); Red Blood Count 3.24 M/uL (4.2-5.4); White Blood Count 7.28 K/uL (4.8-10.8)
[2020-07-21 07:17] LABS: BUN Creatinine Ratio 7.6 (10-20); Calcium 8.2 mg/dl (8.5-10.1); Creatinine Clr Calc Pharmacy 61.3 ml/min; Est GFR (African American) 73.5; Est GFR (Non-African American) 63.4; Potassium 3.4 mmol/L (3.5-5.1)
[2020-07-21] MEDS: metroNIDAZOLE 500 MG/100 ML BAG IV SCH ×3 (08:09→23:06)
[2020-07-21] MEDS: PANTOprazole 40 MG in SYRINGE 0 ML IV SCH ×2 (08:09→21:06)
[2020-07-21] MEDS: FAMOTIDINE 20 MG in SYRINGE 3 ML IV SCH ×2 (08:10→21:06)
[2020-07-21] MEDS: CIPROFLOXACIN / D5W 400 MG/200 ML BAG IV SCH ×2 (09:13→21:06)
[2020-07-21] MEDS: POTASSIUM CHLORIDE / WTR 10 MEQ/100 ML PLCT IV SCH ×2 (11:29→13:25)
[2020-07-21] MEDS ORDERED: COUGH DROP (SUGAR FREE) LOZ 24 LOZ/1 BOX BUCCAL PRN (18:12)
[2020-07-21] MEDS ORDERED: BENZOCAINE/MENTHOL 18 LOZ/1 BOX MT PRN (18:28)
--- NOTE | 2020-07-21 21:31 | Hospitalist Progress Note ---
Date of Service July 21, 2020 Assessment & Plan (1) Small bowel obstruction: CT a/p on 07/19 showed "Moderately dilated fluid-filled small bowel with transition point within the pelvis." - NPO - IV fluids - Pain control - General surgery following - Conservative measures for now. Continue with NG tube and try to limit opiates. -Will likely stop NG tube in AM. will continue to monitor. (2) Hypothyroidism: Only uses a pork thyroid product. TSH was 9.0 in 2019. - Check TSH: 0.5 (3) DVT prophylaxis: Heparin 5000 units Q12h Admission and Anticipated Discharge Date Admission Date: July 19, 2020 Subjective Patient reports she is feeling better. She has no nausea, or vomiting. She reports she is not passing gas. Review of Systems Review of Systems: All systems reviewed & are unremarkable except as noted in HPI & below Physical Exam Physical Exam: Constitutional: WD/WN, vitals as above in no distress Eyes: EOM intact bilaterally; no conjunctival abnormality ENMT: external ear and nose normal, oropharynx normal Neck: trachea midline, no thyromegaly normal visual inspection Respiratory: normal respiratory effort, lungs clear to auscultation no respiratory distress Cardiovascular: RRR, no murmur, no edema Gastrointestinal (Abdomen): Inspection/Auscultation: abdomen normal to inspection and + hypoactive bowel sounds; abdomen not distended Percussion/Palpation: non-tender and abdomen soft; no guarding and abdomen not rigid Musculoskeletal: no cyanosis or clubbing, extremities motor strength 5/5 Skin: no rashes, warm and dry Neurologic: moves all extremities and awake Psychiatric: Orientation: oriented x 3 and cooperative Results & Data Results & Data ([facility]) Vital Signs (Past 12 Hours) Vital Signs Temp Pulse Resp BP Pulse Ox 07/21/20 15:10 36.8 C 69 20 102/64 98 PG Care Time/CCT Total # of Minutes Spent Total Time Spent with Patient: Total time spent is greater than 50% in coordination of care (as documented) at patient's floor/unit and/or counseling patient: Coding Level of Care Code 59198 Subseq Hosp Care Lvl 2 Diagnoses Small bowel obstruction K56.609 Hypothyroidism E03.9 Hypothyroidism type: unspecified DVT prophylaxis Z29.9 Time Spent (min) 25 (1) Hypothyroidism Hypothyroidism type: unspecified Qualified Code(s): E03.9 - Hypothyroidism, unspecified
[2020-07-22] MEDS: D5W AND 1/2NSS 1,000 ML IV SCH (04:23)
[2020-07-22] MEDS: metroNIDAZOLE 500 MG/100 ML BAG IV SCH (07:24)
--- NOTE | 2020-07-22 08:25 | Surgery Progress Note ---
Date of Service F/U SBO, pt is doing better, no abdominal pain, no nausea, passed BM x2, NG 550ml July 22, 2020 Assessment & Plan (1) Small bowel obstruction: 64 year-old female with history of appendiceal adenocarcinoma s/p resection and chemotherapy (at least one treatment of intraperitoneal chemotherapy), small bowel resection in 2004, cholecystectomy and oophorectomy with multiple episodes of recurrent SBO's presented to ED with lower abdominal pain and nausea and vomiting. CT scan consistent with SBO with transition zone in lower pelvis similar to prior CT scans dating back to 2016. Leukocytosis of 17K. Plan: No acute surgical indication at this time. Given extensive surgical history, history of intraperitoneal chemotherapy, and likely extensive intra-abdominal adhesions would want to avoid surgical intervention unless absolutely indicated Conservative measures: NPO (okay to have mouth swabs), IV fluids, IV pain management (try to limit narcotics), IV zofran prn nausea, low threshold for NGT if persistent nausea or any vomiting, and ambulation encouraged. Will continue to follow. Discussed with Dr. Pop who is to evaluate patient later today. DR. Pop, I reviewed pt's H/P, labs, CT scan with pt, I agree with conservative treatment now, pt may needs surgery if pt's symptoms are worse, other option transfer pt to ( pt had colon resection at [place] in the past), pt understood, I answered all questions, base on high WBC 17,000, add on cipro + flagyl, repeat labs and KUB in the morning, will F/U 07/22/2020 8:28AM F/U SBO, SBO resolved pull out NG tube clear diet then full liquid diet, if pt tolerated it, pt wants to go home today or tomorrow, OK, F/U nh 2 weeks, Admission and Anticipated Discharge Date Admission Date: July 19, 2020 Subjective Patient reports feeling well and tolerating the NG tube. Patient denies any nausea or vomiting. Physical Exam Constitutional: WD/WN, vitals as above well developed and well nourished Eyes: PERRL, conjunctivae normal, anicteric sclerae ENMT: external ear and nose normal, oropharynx normal Neck: trachea midline, no thyromegaly Respiratory: normal respiratory effort, lungs clear to auscultation normal respiratory effort Cardiovascular: RRR, no murmur, no edema Rate/Rhythm: regular rate and regular rhythm Gastrointestinal (Abdomen): normal bowel sounds, soft, nontender, no hepatosplenomegaly Percussion/Palpation: abdomen soft NT, ND BS + Musculoskeletal: no cyanosis or clubbing, extremities motor strength 5/5 Skin: no rashes, warm and dry Neurologic: awake Psychiatric: Orientation: alert and oriented x 3 Results & Data ([facility]) Vital Signs (Past 12 Hours) Vital Signs Temp Pulse Resp BP Pulse Ox 07/22/20 07:09 36.8 C 66 16 109/70 98 07/21/20 22:53 36.7 C 68 14 116/63 97
[2020-07-22] MEDS: CIPROFLOXACIN / D5W 400 MG/200 ML BAG IV SCH (08:58)
[2020-07-22] MEDS: PANTOprazole 40 MG in SYRINGE 0 ML IV SCH (08:58)
[2020-07-22] MEDS: FAMOTIDINE 20 MG in SYRINGE 3 ML IV SCH (08:58)
--- NOTE | 2020-07-29 20:25 | Discharge Summary ---
Date of Service July 22, 2020 Admission HPI Per Admitting Provider 64yo F w/ hx of adenocarcinoma of appendix who presents with recurrent SBO. Her original surgery was in the early . She underwent chemo at that time and had a second surgery ~2002. Her first SBO was in 2003 and required surgery again. The original surgery was in [place], then the next two were in [place], [place]. No surgeries since that time. She has had multiple SBOs in the past, most recently in 04/2018, but has not needed any surgery. She reports her pain began around 8-9pm with about 5 episodes of vomiting. The vomit was not bloody and just her food. She took an unknown pain medication which she says she had at home. This did not help her pain, and she presented to the ED where she received IV hydromorphone and Zofran with some relief. An NG tube was suggested, but she declined at this time. Principal Diagnosis SBO Discharge Exam Constitutional: WD/WN, vitals as above in no distress Eyes: EOM intact bilaterally; no conjunctival abnormality ENMT: external ear and nose normal, oropharynx normal Neck: trachea midline, no thyromegaly normal visual inspection Respiratory: normal respiratory effort, lungs clear to auscultation no respiratory distress Cardiovascular: RRR, no murmur, no edema Gastrointestinal (Abdomen): Inspection/Auscultation: abdomen normal to inspection and + hypoactive bowel sounds; abdomen not distended Percussion/Palpation: non-tender and abdomen soft; no guarding and abdomen not rigid Musculoskeletal: no cyanosis or clubbing, extremities motor strength 5/5 Skin: no rashes, warm and dry Neurologic: moves all extremities and awake Psychiatric: Orientation: oriented x 3 and cooperative Discharge Data Allergies Allergy/AdvReac Type Severity Reaction Status Date / Time barium sulfate Allergy Severe "SEVERELY Verified 07/19/20 05:51 ILL", GI promethazine Allergy Mild INTOLERANCE, Verified 07/19/20 05:51 DIZZY meperidine Allergy Unknown BRUISING Verified 07/19/20 05:51 AND SEVERE BURNING IN IV FORM adhesive AdvReac Unknown RASH Verified 07/19/20 05:51 Consultations 07/19/20 06:34 ED Decision to Admit Stat 07/19/20 10:32 Consult General Surgery Routine Ordered Studies 07/19/20 05:13 CT abd pelvis IV con only Urgent Hospital Course (1) Small bowel obstruction: CT a/p on 07/19 showed "Moderately dilated fluid-filled small bowel with transition point within the pelvis." - NPO - IV fluids - Pain control - General surgery following - Conservative measures for now. No longer has NG tube. Patient tolerating food. Agreeable to discharge (2) Hypothyroidism: Only uses a pork thyroid product. TSH was 9.0 in 2019. - Check TSH: 0.5 (3) DVT prophylaxis: Heparin 5000 units Q12h Total Time Total Time Spent Total Time Spent (In Minutes): 32 Total Time Includes: Examination of the Patient, Discharge Planning and Medication Reconciliation Discharge Plan Discharge Items Patient Disposition: Home - Self-Care Reason For Visit: SBO Discharge Diagnosis: small bowel obstruction Activity: Resume your previous activity Non-emergency contact: Primary Care Provider Call non-emergency contact if: you have any medication questions Follow-up/Referrals: Toney Villasenor [Primary Care Provider] - 07/29/20 9:30 am (Please send records to 's office [phone]) Diet: Regular and Full liquid Addtl Attending Provider Instructions: Full liquid diet for 2 more days then advance to a soft diet for 2 days then a regular diet. Followup with Gen Surgery in 2 weeks, Pending Studies at Discharge: No Stand-Alone Forms: My [facility], Smoking Cessation Medications and DC Order Prescriptions: Continued lutein 6 mg tablet 6 mg PO DAILY RF: 0 bisacodyl 5 mg tablet,delayed release (DR/EC) 5 mg PO DIRECTED RF: 0 pantoprazole [Protonix] 40 mg Tablet,Delayed Release (Dr/Ec) 40 mg PO QPM RF: 0 potassium chloride 10 mEq Tablet Extended Release 10 meq PO QAM RF: 0 ferrous sulfate 325 mg (65 mg iron) Tablet 325 mg PO 4XWK RF: 0 multivitamin with minerals [Multiple Vitamin-Minerals] Tablet 1 tab PO DAILY RF: 0 cholecalciferol (vitamin D3) [Vitamin D3] 125 mcg (5,000 unit) Tablet 125 mcg PO DAILY RF: 0 cyanocobalamin (vitamin B-12) 1,000 mcg Tablet, Sublingual 1,000 mcg SUBLINGUAL 3XWK RF: 0 vitamin E 400 unit Capsule 400 unit PO DAILY RF: 0 calcium carbonate [Calcium 600] 600 mg calcium (1,500 mg) Tablet 1,200 mg PO DAILY RF: 0 docusate sodium [Colace] 100 mg capsule 100 mg PO BID Qty: 1 RF: 0 thyroid (pork) [[place] Thyroid] 30 mg tablet 90 mg PO DAILY RF: 0 No Action conjugated estrogens 0.625 mg/gram cream 0.625 mg PV 2XWK Qty: 30 RF: 2 Discharge Orders: Discharge Order (Routine); Ordered 07/22/20 Ordered By: Miko Sosa Admission Data Admit Date/Time: 07/19/20 09:57 Attending Provider: Miko Sosa Admit Provider: Guicho Lopez Primary Care Provider: Toney Villasenor Other Providers: Bryan Pop ; Brady Siddiqui Other Interventions: Discharge Summary Assessment (RN) Last Done: 07/22/20 15:16 Coding Level of Care Code D/C Day Management >30 mins Diagnoses Small bowel obstruction K56.609 Hypothyroidism E03.9 Hypothyroidism type: unspecified DVT prophylaxis Z29.9
== END 2020-07-22 15:47 | disposition home or self-care (01) | DRG 390 ==
LOC: ED 04:57 → 3N 09:38 → SUATTDRO 09:57
DX: Z91.048 Other nonmedicinal substance allergy status; Z88.8 Allergy status to other drugs, medicaments and biological substances; Z92.21 Personal history of antineoplastic chemotherapy; Z91.041 Radiographic dye allergy status; Z90.89 Acquired absence of other organs; K56.609 Unspecified intestinal obstruction, unspecified as to partial versus complete obstruction; Z85.038 Personal history of other malignant neoplasm of large intestine; Z88.6 Allergy status to analgesic agent; Z79.890 Hormone replacement therapy; Z90.49 Acquired absence of other specified parts of digestive tract; E03.9 Hypothyroidism, unspecified; Z90.710 Acquired absence of both cervix and uterus

== ENCOUNTER 2024-06-17 02:04 | Inpatient (IN) ==
[2024-06-17] MEDS: MoRPHine SULFATE 4 MG/ML 1 ML CARP\\VIAL IV PRN ×2 (03:07→13:25)
[2024-06-17] MEDS: ONDANSETRON INJ 2 MG/ML 2 ML VIAL IV STA (03:08)
[2024-06-17] MEDS: SODIUM CHLORIDE 0.9% 1,000 ML IV ONE (03:11)
[2024-06-17 03:13] LABS: Basophils # (auto) 0.04 K/uL (0.00-0.20); Basophils % (auto) 0.3 %; Eosinophils # (auto) 0.03 K/uL (0.00-0.50); Eosinophils % (auto) 0.2 %; Hematocrit (blood only) 37.5 % (37.0-47.0); Hemoglobin 12.9 g/dl (12.0-16.0); Immature Granulocytes # (auto) 0.05 K/uL (0.01-0.20); Immature Granulocytes % (auto) 0.3 %; Lymphocytes # (auto) 1.19 K/uL (1.20-3.40); Lymphocytes % (auto) 8.2 %; Mean Corpuscular Hemoglobin 31.2 pg (25.0-34.0); Mean Corpuscular Hgb Conc 34.4 g/dL (32.0-36.0); Mean Corpuscular Volume 90.6 fL (80.0-100.0); Monocytes # (auto) 0.86 K/uL (0.11-0.59); Monocytes % (auto) 5.9 %; Neutrophils # (auto) 12.33 K/uL (1.40-6.50); Neutrophils % (auto) 85.1 %; Platelet Count 268 K/uL (130-400); RDW Coefficient of Variation 12.5 % (11.5-14.5); RDW Standard Deviation 41.1 fL (36.4-46.3); Red Blood Count 4.14 M/uL (4.20-5.40)
[2024-06-17 03:26] LABS: Alanine Aminotransferase 20 U/L (7-52); Albumin Globulin Ratio 1.5 (0.9-2); Albumin Level 4.6 gm/dl (3.4-5.0); Alkaline Phosphatase 86 U/L (34-104); Anion Gap 12 (3-11); Aspartate Aminotransferase 23 U/L (13-39); BUN Creatinine Ratio 17.7 (10-20); Bilirubin,Total 0.5 mg/dl (0.2-1.0); Blood Urea Nitrogen 17 mg/dl (6-23); Calcium 10.5 mg/dl (8.6-10.3); Carbon Dioxide 27 mmol/L (21-32); Chloride 100 mmol/L (98-107); Globulin 3.1 gm/dl (2.5-4.0); Glucose 143 mg/dl (70-99(Fasting)); Lipase 34 U/L (11-82); Magnesium 2.2 mg/dl (1.7-2.4); Potassium 3.8 mmol/L (3.5-5.1); Sodium 139 mmol/L (136-145); Total Protein 7.7 gm/dl (6.0-8.3)
[2024-06-17] MEDS: PANTOprazole 40 MG/10 ML SYR IV ONE (04:24)
[2024-06-17] MEDS: OPTIRAY 320 100ml IV ONE (04:52)
[2024-06-17 05:25] LABS: Adenovirus PCR Not Detected (NotDetected); Bordetella parapertussis PCR Not Detected (NotDetected); Bordetella pertussis PCR Not Detected (NotDetected); Chlamydia pneumoniae PCR Not Detected (NotDetected); Coronavirus 229E PCR Not Detected (NotDetected); Coronavirus CoV-2 (COVID19)PCR Not Detected (NotDetected); Coronavirus HKU1 PCR Not Detected (NotDetected); Coronavirus NL63 PCR Not Detected (NotDetected); Coronavirus OC43PCR Not Detected (NotDetected); Human Metapneumovirus PCR Not Detected (NotDetected); Influenza A PCR Not Detected (NotDetected); Influenza B PCR Not Detected (NotDetected); Mycoplasma pneumoniae PCR Not Detected (NotDetected); Parainfluenza Virus 1 PCR Not Detected (NotDetected); Parainfluenza Virus 2 PCR Not Detected (NotDetected); Parainfluenza Virus 3 PCR Not Detected (NotDetected); Parainfluenza Virus 4 PCR Not Detected (NotDetected); Respiratory Syncytial VirusPCR Not Detected (NotDetected); Rhinovirus/Enterovirus PCR Not Detected (NotDetected)
--- NOTE | 2024-06-17 05:46 | CT Scan Report ---
EXAM: CT abd pelvis IV con only CLINICAL HISTORY: abd pain, hx sbo TECHNIQUE: CT of the abdomen and pelvis was performed with IV contrast, with the following protocol: axial images with, and reconstructed coronal and sagittal images. 94 cc optiray intravenous contrast was administered.One of the following dose reduction techniques was utilized for this exam: Automated exposure control, adjustment of the mA and/or kV according to patient size, and use of iterative reconstruction. CTDI 18.06 mGy DLP 908.97 mGy-m COMPARISON: Comparison is made with previous imaging study dated ,07/19/2020 FINDINGS: Abdomen: Liver: Normal in size, shape, and density. No focal lesions, cysts, or masses were identified. Hepatic vasculature are unremarkable. Gallbladder and Biliary System: Mild biliary ductal dilatation is unchanged and likely related to cholecystectomy. Pancreas: Pancreatic head, body, and tail are visualized and appear normal in size and density. No pancreatic masses or calcifications were noted. The pancreatic duct is not dilated. Spleen: Normal in size, shape, and density. No splenic lesions or masses were identified. Kidneys and Adrenal Glands: Both kidneys are normal in size, shape, and position. Cortical thickness is within normal limits. No renal calculi or hydronephrosis. Adrenal glands are unremarkable with no evidence of masses or hyperplasia. Pelvis: Urinary Bladder: Normal in contour and wall thickness. No intraluminal lesions identified. Uterus: Not seen, likely removed. Ovaries: Not well visualized but no gross abnormalities noted. Peritoneal and Retroperitoneal Structures: No free fluid or abnormal fluid collections were identified within the abdomen or pelvis. No lymphadenopathy was noted. Bowel: Several bowel anastomoses are noted. The small bowel is moderately dilated and fluid-filled. Transition point within the central pelvis . Distal small bowel is decompressed Bones and Soft Tissues: Left hip arthroplasty is noted. No suspicious osseous lesions are noted. No fractures or abnormal masses were identified. IMPRESSION: Moderately dilated fluid-filled small bowel with transition point within the pelvis. No significant interval changes. Electronically signed by Marie Tate 06-17-2024 05:46 AM
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
[2024-06-17] MEDS: 4.5GM X1 IV STA (07:14)
[2024-06-17] MEDS: NSS + 20MEQ KCL 20 MEQ/1,000 ML BAG IV SCH (07:56)
--- NOTE | 2024-06-17 08:13 | Hospitalist Progress Note ---
Date of Service June 17, 2024 Assessment & Plan (1) Adenocarcinoma of appendix: (2) Small bowel obstruction: (3) Hypothyroidism: (4) History of resection of small bowel: (5) H/O exploratory laparotomy: Plan The patient is a 68-year-old female with past medical history including adenocarcinoma of appendix, hypothyroidism, osteopenia, arthritis, GERD. #Recurrent small bowel obstruction- - History of previous small bowel resection, ovarian cystectomy, adenocarcinoma appendix - N.p.o. - Protonix 40 mg IV twice daily - Zofran 4 mg IV every 6 hours as needed - Acetaminophen 1 g IV every 8 hours as needed for mild pain or fever - Toradol 15 mg IV every 6 hours as needed for moderate pain - Morphine sulfate 4 mg IV every 3 hours needed for severe pain - Zosyn 4.5 g IV every 8 hours - NSS + KCl 20 mEq at hide 25 mL/h x 2 L - She is status post 1 L normal saline bolus from the ED - gen surge eval pending #Leukocytosis - possibly reactive but will cont zosyn at this #Hypothyroidism- - Thyroid pork/[place] Thyroid, resume when no longer n.p.o. #GERD- - Changing pantoprazole to IV as noted Subjective No acute events overnight Had a normal BM last night and small one early this morning (around 1am). Since then no flatus or BM No nausea / vomiting since around 630a today Currently no new complaints Review of Systems Review of Systems: Comprehensive ROS neg Physical Exam Physical Exam: Gen: NAD, lying in bed comfortable HEENT: NC/AT, MMM Lungs: CTAB CVS: s1s2nl, RRR Abd: good bowel sounds upper quadrants, diminished bowel sounds lower quadrants, soft, NT Ext: no edema Results & Data Results & Data Vital Signs (Past 12 Hours) Vital Signs Temp Pulse Pulse Resp BP BP Pulse Ox 06/17/24 06:15 69 06/17/24 06:00 69 18 114/65 96 06/17/24 04:04 75 18 115/68 98 06/17/24 02:31 67 06/17/24 02:13 36.6 C 95 H 16 104/72 97 O2 Del Method 06/17/24 06:15 06/17/24 06:00 Room Air 06/17/24 04:04 Room Air 06/17/24 02:31 06/17/24 02:13 Room Air PG Care Time/CCT Total # of Minutes Spent Total Time Spent with Patient: Total time spent is greater than 50% in coordination of care (as documented) at patient's floor/unit and/or counseling patient: Coding Level of Care Code 18314 SUB INP/OBS CARE 3/50MIN Diagnoses Adenocarcinoma of appendix C18.1 Small bowel obstruction K56.609 Hypothyroidism, unspecified type E03.9 Hypothyroidism type: unspecified History of resection of small bowel Z90.49 H/O exploratory laparotomy Z98.890 (3) Hypothyroidism Hypothyroidism type: unspecified Qualified Code(s): E03.9 - Hypothyroidism, unspecified
[2024-06-17] MEDS ORDERED: ACETAMINOPHEN 1000 MG/100 ML IV IV PRN (09:06)
[2024-06-17] MEDS ORDERED: ONDANSETRON INJ 2 MG/ML 2 ML VIAL IV PRN (09:06)
[2024-06-17] MEDS ORDERED: KETOROLAC 30 MG/ML VIAL IV PRN (09:06)
[2024-06-17] MEDS: PIPERACILLIN/TAZOBACTAM 4.5 GM/100 ML BAG IV SCH (12:08)
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
[2024-06-17 18:55] LABS: Appearance Urine Clear (Clear); Bacteria Urine Automated None Seen (None Seen); Bilirubin Urine Negative (Negative); Blood Urine Negative (Negative); Cast Urine Automated 0-2 /lpf (0-2); Color Urine Yellow; Epithelial Cell Urine Auto 0-2 /hpf (0-2); Glucose Urine UA Negative (Negative); Ketones Urine Negative (Negative); Leukocyte Esterase Urine Negative (Negative); Nitrite Urine Negative (Negative); Protein Urine Trace (Negative); RBC Urine Automated 0-2 /hpf (0-2); Specific Gravity Urine 1.045 (1.000-1.030); Urobilinogen Urine Negative (Negative); WBC Urine Automated 0-5 /hpf (0-5); pH Urine 7.5 (4.5-7.5)
[2024-06-17] MEDS: PANTOprazole 40 MG/10 ML SYR IV SCH (20:53)
[2024-06-18] MEDS: D5W AND 1/2NSS 1,000 ML IV SCH (01:12)
--- NOTE | 2024-06-18 05:11 | Surgery Progress Note ---
<Statement entered by Rand Mcnally DO - 06/18/24 12:50> I have seen and examined this patient and I agree with this assessment. As of this am, she states she has passed gas and has no abdominal pain at the moment. Her abdomen is non-tender. May have chips and sips, consider a clear liquid tray today and if she tolerates, she may continue to advance as tolerated for potential D/C tomorrow if all is well. Date of Service June 18, 2024 Assessment & Plan (1) Small bowel obstruction: Plan: The patient has been admitted on the hospitalist service. From surgery perspective we recommend the following: Continue n.p.o. statusconsideration can be given to initiating a diet beginning with clear liquids once patient has return of bowel function Continue intravenous fluids until oral intake can be advanced and is reliable Encourage mobilizationboth the patient and nurse reports she has ambulated in the hallway several times throughout the evening Check a.m. labs when available Additional recommendations with forthcoming based on her clinical course as unfolds Admission and Anticipated Discharge Date Admission Date: June 17, 2024 Subjective Patient is currently resting comfortably in bed. At the present time she notes that her abdominal pain is markedly improved from what was noted at time of admission. She denies any nausea or vomiting. She does report, however that she has not had a bowel movement or passed any flatus over the past 24 hours. Physical Exam Gastrointestinal (Abdomen): Abdomen is soft and nondistended. There is no rebound tenderness or guarding. There is no pain with palpation Results & Data Vital Signs (Past 12 Hours) Vital Signs Temp Pulse Resp BP Pulse Ox O2 Del Method 06/17/24 19:58 37.5 C 74 17 128/77 95 Room Air PG Care Time/CCT Total # of Minutes Spent Total Time Spent with Patient: Total time spent is greater than 50% in coordination of care (as documented) at patient's floor/unit and/or counseling patient: Coding Level of Care Code 37995 SUB INP/OBS CARE 07/08MIN Diagnoses Small bowel obstruction K56.609
[2024-06-18 07:42] LABS: Albumin Globulin Ratio 1.5 (0.9-2); Albumin Level 3.3 gm/dl (3.4-5.0); BUN Creatinine Ratio 14.8 (10-20); Bilirubin,Total 0.7 mg/dl (0.2-1.0); Calcium 7.7 mg/dl (8.6-10.3); Creatinine Clr Calc Pharmacy 64.6 ml/min; Globulin 2.2 gm/dl (2.5-4.0); Magnesium 2.1 mg/dl (1.7-2.4); Potassium 4.1 mmol/L (3.5-5.1); Total Protein 5.5 gm/dl (6.0-8.3)
[2024-06-18 07:49] LABS: Basophils # (auto) 0.05 K/uL (0.00-0.20); Basophils % (auto) 0.9 %; Eosinophils # (auto) 0.19 K/uL (0.00-0.50); Eosinophils % (auto) 3.5 %; Hematocrit (blood only) 29.2 % (37.0-47.0); Hemoglobin 9.6 g/dl (12.0-16.0); Immature Granulocytes # (auto) 0.01 K/uL (0.01-0.20); Immature Granulocytes % (auto) 0.2 %; Lymphocytes # (auto) 1.58 K/uL (1.20-3.40); Lymphocytes % (auto) 29.4 %; Mean Corpuscular Hemoglobin 31.5 pg (25.0-34.0); Mean Corpuscular Hgb Conc 32.9 g/dL (32.0-36.0); Mean Corpuscular Volume 95.7 fL (80.0-100.0); Mean Platelet Volume 9.4 fL (9.4-12.4); Monocytes # (auto) 0.67 K/uL (0.11-0.59); Monocytes % (auto) 12.5 %; Neutrophils # (auto) 2.87 K/uL (1.40-6.50); Neutrophils % (auto) 53.5 %; Platelet Count 196 K/uL (130-400); RDW Coefficient of Variation 12.9 % (11.5-14.5); RDW Standard Deviation 45.1 fL (36.4-46.3); Red Blood Count 3.05 M/uL (4.20-5.40); White Blood Count 5.37 K/ul (4.8-10.8)
--- NOTE | 2024-06-18 07:59 | Hospitalist Progress Note ---
Date of Service June 18, 2024 Assessment & Plan (1) Adenocarcinoma of appendix: (2) Small bowel obstruction: (3) Hypothyroidism: (4) History of resection of small bowel: (5) H/O exploratory laparotomy: Plan The patient is a 68-year-old female with past medical history including adenocarcinoma of appendix, hypothyroidism, osteopenia, arthritis, GERD. #Recurrent small bowel obstruction- - History of previous small bowel resection, ovarian cystectomy, adenocarcinoma appendix - cont NPO given diminished bowels sounds in the lower quadrants - Protonix 40 mg IV twice daily - Zofran 4 mg IV every 6 hours as needed - Acetaminophen 1 g IV every 8 hours as needed for mild pain or fever - Toradol 15 mg IV every 6 hours as needed for moderate pain - Morphine sulfate 4 mg IV every 3 hours needed for severe pain - Zosyn 4.5 g IV every 8 hours - NSS + KCl 20 mEq at hide 25 mL/h x 2 L - She is status post 1 L normal saline bolus from the ED - gen surge recs appreciated, cont NPO at this time, clears once bowel function resumes #Leukocytosis- resolved - suspect reactive / hemoconcentration - d/c zosyn and observe #Anemia - 12.9 on admission, dropped to 9.6 after fluids - no evidence of active bleeding - trend at this time #Hypothyroidism- - Thyroid pork/[place] Thyroid, resume when no longer n.p.o. #GERD- - Changing pantoprazole to IV as noted Admission and Anticipated Discharge Date Admission Date: June 17, 2024 Subjective No acute events overnight Some flatus this morning but no BM Review of Systems Review of Systems: Comprehensive ROS neg Physical Exam Physical Exam: Gen: NAD, lying in bed comfortable HEENT: NC/AT, MMM Lungs: CTAB CVS: s1s2nl, RRR Abd: good bowel sounds upper quadrants, diminished bowel sounds lower quadrants (unchanged), soft, NT Ext: no edema Results & Data Results & Data Vital Signs (Past 12 Hours) Vital Signs Temp Pulse Resp BP Pulse Ox O2 Del Method 06/17/24 19:58 37.5 C 74 17 128/77 95 Room Air PG Care Time/CCT Total # of Minutes Spent Total Time Spent with Patient: Total time spent is greater than 50% in coordination of care (as documented) at patient's floor/unit and/or counseling patient: Coding Level of Care Code 77295 SUB INP/OBS CARE 2/35MIN Diagnoses Adenocarcinoma of appendix C18.1 Small bowel obstruction K56.609 Hypothyroidism, unspecified type E03.9 Hypothyroidism type: unspecified History of resection of small bowel Z90.49 H/O exploratory laparotomy Z98.890 (3) Hypothyroidism Hypothyroidism type: unspecified Qualified Code(s): E03.9 - Hypothyroidism, unspecified
[2024-06-18 21:36] VITALS: O2SAT 99
[2024-06-19 06:40] LABS: Basophils # (auto) 0.04 K/uL (0.00-0.20); Basophils % (auto) 0.8 %; Eosinophils # (auto) 0.27 K/uL (0.00-0.50); Eosinophils % (auto) 5.7 %; Hematocrit (blood only) 28.5 % (37.0-47.0); Hemoglobin 9.5 g/dl (12.0-16.0); Immature Granulocytes # (auto) 0.01 K/uL (0.01-0.20); Immature Granulocytes % (auto) 0.2 %; Lymphocytes # (auto) 1.74 K/uL (1.20-3.40); Lymphocytes % (auto) 36.9 %; Mean Corpuscular Hemoglobin 31.4 pg (25.0-34.0); Mean Corpuscular Hgb Conc 33.3 g/dL (32.0-36.0); Mean Corpuscular Volume 94.1 fL (80.0-100.0); Mean Platelet Volume 9.3 fL (9.4-12.4); Monocytes # (auto) 0.65 K/uL (0.11-0.59); Monocytes % (auto) 13.8 %; Neutrophils % (auto) 42.6 %; Platelet Count 182 K/uL (130-400); RDW Coefficient of Variation 12.2 % (11.5-14.5); RDW Standard Deviation 42.6 fL (36.4-46.3); Red Blood Count 3.03 M/uL (4.20-5.40); White Blood Count 4.71 K/ul (4.8-10.8)
[2024-06-19 06:53] LABS: Albumin Globulin Ratio 1.4 (0.9-2); Albumin Level 3.4 gm/dl (3.4-5.0); BUN Creatinine Ratio 9.9 (10-20); Bilirubin,Total 0.4 mg/dl (0.2-1.0); Calcium 8.1 mg/dl (8.6-10.3); Globulin 2.4 gm/dl (2.5-4.0); Magnesium 2.1 mg/dl (1.7-2.4); Phosphorus 2.7 mg/dl (2.5-4.9); Potassium 3.6 mmol/L (3.5-5.1); Total Protein 5.8 gm/dl (6.0-8.3)
[2024-06-19 07:14] VITALS: BP 132/69; PULSE 64; RESP 16; TEMP 98
--- NOTE | 2024-06-19 11:13 | Surgery Progress Note ---
Date of Service June 19, 2024 Assessment & Plan (1) History of resection of small bowel: Plan: doing well clinically going to try low fiber for lunch ok for d/c from standpoint if tony diet today Admission and Anticipated Discharge Date Admission Date: June 17, 2024 Subjective pt seen. +bm's. tony full liquids. feels well. no complaints. Physical Exam Physical Exam: alert. nad abd: soft. nt. nd. Results & Data Vital Signs (Past 12 Hours) Vital Signs Temp Pulse Resp BP Pulse Ox O2 Del Method 06/19/24 07:13 36.7 C 64 16 132/69 99 Room Air PG Care Time/CCT Total # of Minutes Spent Total Time Spent with Patient: Total time spent is greater than 50% in coordination of care (as documented) at patient's floor/unit and/or counseling patient: Coding Level of Care Code 70442 SUB INP/OBS CARE 07/08MIN Diagnoses History of resection of small bowel Z90.49
--- NOTE | 2024-06-19 13:02 | Hospitalist Progress Note ---
Date of Service June 19, 2024 Assessment & Plan (1) Adenocarcinoma of appendix: (2) Small bowel obstruction: (3) Hypothyroidism: (4) History of resection of small bowel: (5) H/O exploratory laparotomy: Plan The patient is a 68-year-old female with past medical history including adenocarcinoma of appendix, hypothyroidism, osteopenia, arthritis, GERD. #Recurrent small bowel obstruction- History of previous small bowel resection, ovarian cystectomy, adenocarcinoma appendix Tolerated liquid diet Plan is for d/c if she tolerated regular diet at lunch Appreciate surgery recs Hypothyroidism- Thyroid pork/[place] Thyroid, resume when no longer n.p.o. GERD- Changing pantoprazole to IV as noted Admission and Anticipated Discharge Date Admission Date: June 17, 2024 Subjective patient seen and examined, ambulating the hallway, passing gas, tolerated liquid diet Review of Systems Review of Systems: All systems reviewed are negative, apart from the ones contained in the history. Physical Exam Physical Exam: The patient is awake, alert and oriented 3, well developed and well nourished, normocephalic and atraumatic, lying in bed and in no acute distress. HEENT--PERRL, EOMI, mucous membranes and oropharynx mildly dry Neck--supple. No JVD. No bruits. Thyroid normal, trachea midline, no adenopathy. Heart--normal S1 and S2. No murmurs, rubs or gallops. Lungs--clear bilaterally, no respiratory distress, no accessory muscle use. Abdomen--normal bowel sounds and soft. Extremities--no cyanosis or clubbing. No edema. Dermatologic--normal skin turgor, normal color, no abnormal lymph nodes, no rash. Neurologic--cranial nerves II through XII grossly intact. Rheumatologic--normal range of motion. Psychiatric--normal affect. Results & Data Results & Data Vital Signs (Past 12 Hours) Vital Signs Temp Pulse Resp BP Pulse Ox O2 Del Method 06/19/24 07:13 98.0 F 64 16 132/69 99 Room Air PG Care Time/CCT Total # of Minutes Spent Total Time Spent with Patient: Total time spent is greater than 50% in coordination of care (as documented) at patient's floor/unit and/or counseling patient: Coding Level of Care Code 90824 SUB INP/OBS CARE 2/35MIN Diagnoses Adenocarcinoma of appendix C18.1 Small bowel obstruction K56.609 Hypothyroidism, unspecified type E03.9 Hypothyroidism type: unspecified History of resection of small bowel Z90.49 H/O exploratory laparotomy Z98.890 Time Spent (min) 35 (3) Hypothyroidism Hypothyroidism type: unspecified Qualified Code(s): E03.9 - Hypothyroidism, unspecified
--- NOTE | 2024-06-19 13:35 | Discharge Summary ---
Date of Service June 19, 2024 Admission HPI Per Admitting Provider Past medical history recurrent small bowel obstruction, hypothyroidism, adenocarcinoma of the appendix, GERD. Unfortunately, her previous hospitalization records not available at the moment on the computer. Admission Exam (Per Admitting) Constitutional The patient is awake, alert and oriented 3, well developed and well nourished, normocephalic and atraumatic, lying in bed and in no acute distress. HEENT--PERRL, EOMI, mucous membranes and oropharynx mildly dry Neck--supple. No JVD. No bruits. Thyroid normal, trachea midline, no adenopa thy. Heart--normal S1 and S2. No murmurs, rubs or gallops. Lungs--clear bilaterally, no respiratory distress, no accessory muscle use. Abdomen--normal bowel sounds and soft. Extremities--no cyanosis or clubbing. No edema. Dermatologic--normal skin turgor, normal color, no abnormal lymph nodes, no rash. Neurologic--cranial nerves II through XII grossly intact. Rheumatologic--normal range of motion. Psychiatric--normal affect. Discharge Data Consultations 06/17/24 06:30 ED Decision to Admit Stat 06/17/24 06:55 Consult General Surgery Routine Hospital Course (1) Adenocarcinoma of appendix: (2) Small bowel obstruction: (3) Hypothyroidism: (4) History of resection of small bowel: (5) H/O exploratory laparotomy: Plan The patient is a 68-year-old female with past medical history including adenocarcinoma of appendix, hypothyroidism, osteopenia, arthritis, GERD. #Recurrent small bowel obstruction- History of previous small bowel resection, ovarian cystectomy, adenocarcinoma appendix Tolerated liquid diet Plan is for d/c if she tolerated regular diet at lunch Appreciate surgery recs Hypothyroidism- Thyroid pork/[place] Thyroid, resume when no longer n.p.o. GERD- Changing pantoprazole to IV as noted Coding Level of Care Code 32739 INP/OBS DISCH >30 MIN Diagnoses Adenocarcinoma of appendix C18.1 Small bowel obstruction K56.609 Hypothyroidism, unspecified type E03.9 Hypothyroidism type: unspecified History of resection of small bowel Z90.49 H/O exploratory laparotomy Z98.890 Time Spent (min) 35
== END 2024-06-19 15:39 | disposition home or self-care (01) | DRG 390 ==
LOC: SUATTDRO → ED 02:04 → EDINP 06:56 → SUATTDRO 06:56 → 3E 09:06